=== PATIENT | male | born 1980 | race Caucasian/White ===

== ENCOUNTER 2016-10-25 15:43 | Emergency (ER) | payer MEDICAID, OTHER ==
[~2016-10-25] VITALS: Ht 180.3 cm; Wt 86.2 kg
[~2016-10-25 15:43] MED LIST: CITA10TA70 PO; CYCL10TA9 PO; HYDR-34 PO; NAPR-243 PO; ONDA4TAB8 PO; OXYC-272 PO; TRAM-42 PO; TRM50T PO
--- NOTE | 2016-10-25 16:35 | Diagnostic Imaging Report ---
Portable upright radiograph of the chest. INDICATION: Chest pain. FINDINGS: The lungs are clear. The heart size is normal. There is no effusion or pneumothorax. The mediastinum mayte appear unremarkable. IMPRESSION: Unremarkable exam. Dictated by: Dictated on workstation # [id number]
[2016-10-25 16:36] LABS: BASOPHILS % (AUTO) 0 % (0-10); EOSINOPHILS # (AUTO) 0.3 10^3/uL (0.0-0.3); EOSINOPHILS % (AUTO) 3 % (0-10); LYMPHOCYTES # (AUTO) 2.7 X 10^3 (1.0-4.0); LYMPHOCYTES % (AUTO) 27 % (12-44); MEAN CORPUSCULAR HEMOGLOBIN 33 PG (25-34); MEAN CORPUSCULAR HGB CONC 36 G/DL (32-36); MEAN CORPUSCULAR VOLUME 92 FL (80-99); MEAN PLATELET VOLUME 9.8 FL (7.4-10.4); MONOCYTES % (AUTO) 10 % (0-12); NEUTROPHILS # (AUTO) 5.8 X 10^3 (1.8-7.8); NEUTROPHILS % (AUTO) 60 % (42-75); PLATELET COUNT 290 10^3/uL (130-400); RED BLOOD COUNT 4.35 10^6/uL (4.35-5.85); RED CELL DISTRIBUTION WIDTH 12.8 % (10.0-14.5); WHITE BLOOD COUNT 9.8 10^3/uL (4.3-11.0)
[2016-10-25] MEDS ORDERED: SERT100T8 PO (16:41)
[2016-10-25] MEDS ORDERED: OXCA300T PO (16:41)
[2016-10-25] MEDS ORDERED: GEMF600T3 PO (16:41)
[2016-10-25] MEDS ORDERED: NS IV 1000 ML 1,000 ML IV ONE (16:43)
[2016-10-25] MEDS ORDERED: KETOROLAC 30 MG/ML VIAL IVP ONE (16:45)
[2016-10-25 16:48] LABS: INR 0.9 (0.8-1.4); PROTHROMBIN TIME PATIENT 12.3 SEC (12.2-14.7)
[2016-10-25 16:55] LABS: ALANINE AMINOTRANSFERASE 17 U/L (0-55); ALBUMIN 4.7 G/DL (3.2-4.5); ANION GAP 10 MMOL/L (5-14); ASPARTATE AMINO TRANSFERASE 13 U/L (5-34); BILIRUBIN,TOTAL 0.3 MG/DL (0.1-1.0); BLOOD UREA NITROGEN 15 MG/DL (7-18); BUN/CREATININE RATIO 17; CALCIUM 9.7 MG/DL (8.5-10.1); CARBON DIOXIDE 23 MMOL/L (21-32); CHLORIDE 108 MMOL/L (98-107); CREATININE SERUM 0.88 MG/DL (0.60-1.30); GFR ESTIMATED > 60; GLUCOSE 101 MG/DL (70-105); MAGNESIUM 2.2 MG/DL (1.8-2.4); POTASSIUM 3.8 MMOL/L (3.6-5.0); SODIUM 141 MMOL/L (135-145); TOTAL PROTEIN 7.2 G/DL (6.4-8.2)
[2016-10-25 17:02] LABS: MYOGLOBIN SERUM 36.8 NG/ML (10.0-92.0)
[2016-10-25 17:04] LABS: ALCOHOL < 10 MG/DL (<10); hs C REACTIVE PROTEIN 0.88 MG/DL (0.00-0.50)
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
[2016-10-25 18:12] LABS: THYROID STIMULATING HORMONE 2.67 UIU/ML (0.35-4.94)
[2016-10-25] MEDS ORDERED: PRD20T PO (18:31)
[2016-10-25 18:32] VITALS: BP 132/84
== END 2016-10-25 18:32 | disposition home or self-care (01) ==
LOC: EDUNIT# 15:43 → ER 15:45
DX: R07.89 Other chest pain (principal); R42 Dizziness and giddiness; I25.2 Old myocardial infarction; F17.210 Nicotine dependence, cigarettes, uncomplicated; Z85.47 Personal history of malignant neoplasm of testis; Z85.850 Personal history of malignant neoplasm of thyroid; Z90.79 Acquired absence of other genital organ(s); Z87.820 Personal history of traumatic brain injury; Z79.899 Other long term (current) drug therapy
CPT/HCPCS: 36415; 71010; 80053; 80306; 80320; 83735; 83874; 84439; 84443; 84484; 85025; 85379; 85610; 85730; 86141; 87804; 93005; 93041; 96374; 99285

== ENCOUNTER 2017-03-05 10:39 | Emergency (ER) | payer MEDICAID ==
[~2017-03-05] VITALS: Ht 177.8 cm; Wt 83.9 kg
[~2017-03-05 10:39] MED LIST changes: +GEMF600T3 PO; +OXCA300T PO; +PRD20T PO; +SERT100T8 PO
--- NOTE | 2017-03-05 11:22 | ED Back Pain ---
General Chief Complaint: Back Problems Stated Complaint: BACK PAIN Nursing Triage Note: WORSENED CHRONIC BACK PAIN, NO NEW INJURY. Nursing Sepsis Screen: No Definite Risk Source of Information: Patient, Family Exam Limitations: No Limitations History of Present Illness Time Seen by Provider: 11:22 Initial Comments 37 her old male patient presents to the emergency department with complaints of low back pain. Chronic back pain for approximately 13 years, worse today. Reports he bent over to let the dog out and when he stood up he had severe low back pain. Denies bowel or bladder incontinence. Location: Lumbar Spine, Paraspinous Muscles Timing/Duration: Other (chronic pain 13 years. Worse today.) Pain/Injury Location: Back Radiation: Other (radiates down the bilateral lower extremities.) Method of Injury: Unknown (denies recent injury.) Modifying Factors: Improves With Immobilization, Worse With Movement Allergies and Home Medications Allergies Coded Allergies: Penicillins (Verified Allergy, Unknown, 03/05/17) aspirin (Unverified Allergy, Unknown, 03/05/17) Home Medications Cyclobenzaprine HCl 10 Mg Tablet, 10 MG PO Q8H PRN for SPASMS, #14 Ref 0 Prescribed by: CONSUELO GARZA on 03/05/17 1224 Prednisone 20 Mg Tab, 40 MG PO DAILY, #10 Ref 0 Prescribed by: CONSUELO GARZA on 03/05/17 1224 Tramadol HCl 50 Mg Tablet, 50 MG PO Q4H PRN for PAIN-MILD TO MODERATE, #20 Ref 0 Prescribed by: CONSUELO GARZA on 03/05/17 1224 Constitutional: No chills, No fever, No malaise Respiratory: no symptoms reported Cardiovascular: no symptoms reported Gastrointestinal: No abdominal pain, No constipation, No diarrhea, No nausea, No vomiting Genitourinary: No decreased output, No dysuria, No frequency, No hematuria, No incontinence, No pain Musculoskeletal: see HPI, back pain, muscle pain, No neck pain Skin: no symptoms reported Psychiatric/Neurological: Numbness (increased numbness LLE), Pre-Existing Deficit (chronic numbness left lower extremity secondary to a previous surgery) , Denies Weakness All Other Systems Reviewed Negative Unless Noted: Yes (Negative excepted noted.) Past Aidfcgt-Wgmpph-Htculh Hx Patient Social History Alcohol Use: Denies Use Recreational Drug Use: No (states "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.) Smoking Status: Current Everyday Smoker Type Used: Cigarettes 2nd Hand Smoke Exposure: Yes Recent Foreign Travel: No Contact w/Someone Who Travel: No Recent Infectious Disease Expo: No Recent Hopitalizations: No Immunizations Up To Date Tetanus Booster (TDap): Unknown Seasonal Allergies Seasonal Allergies: No Surgeries HX Surgeries: Yes Surgeries: Orthopedic, Testicular Respiratory Hx Respiratory Disorders: No Cardiovascular Hx Cardiac Disorders: Yes Cardiac Disorders: Coronary Artery Disease, Heart Attack Neurological Hx Neurological Disorders: Yes (numbness LLE below the knee from a previous surgery.) Neurological Disorders: Traumatic Brain Injury Reproductive System Hx Reproductive Disorders: No Genitourinary Hx Genitourinary Disorders: No Gastrointestinal Hx Gastrointestinal Disorders: No Musculoskeletal Hx Musculoskeletal Disorders: Yes Musculoskeletal Disorders: Back Injury, Scoliosis, Chronic Back Pain Endocrine Hx Endocrine Disorders: No HEENT HX ENT Disorders: No Cancer Hx Cancer: Yes Cancer: Thyroid Psychosocial Hx Psychiatric Problems: Yes (memory deficits from TBI) Behavioral Health Disorders: Anxiety, PTSD, Depression Integumentary HX Skin/Integumentary Disorder: No Reviewed Nursing Assessment Reviewed/Agree w Nursing PMH: Yes Family Medical History Significant Family History: No Pertinent Family Hx Physical Exam Vital Signs Vital Sign - Last 12Hours 03/05/17 11:13 Temp 98.1 Pulse 77 Resp 18 B/P (MAP) 111/81 Pulse Ox 98 O2 Delivery Room Air Capillary Refill : Less Than 3 Seconds General Appearance: WD/WN, Moderate Distress (patient states "Don't fucking move me!"), Other (disheveled, wearing bunny slippers and has a cane (states he keeps the cane around the house just in case he needs it)) HEENT: PERRL/EOMI, Pharynx Normal Neck: Normal Inspection, Supple Cardiovascular: Regular Rate, Rhythm, No Edema, No Murmur, Normal Peripheral Pulses Respiratory: Lungs Clear, Normal Breath Sounds, No Respiratory Distress Peripheral Pulses: 2+ Dorsalis Pedis (R), 2+ Left Dors-Pedis (L) Gastrointestinal: Normal Bowel Sounds, No Organomegaly, Non Tender, Soft, No Distended Back: Normal Inspection (patient refuses ROM testing.), Muscle Spasm, Vertebral Tenderness Extremity: Normal Capillary Refill, Normal Inspection, No Calf Tenderness, No Pedal Edema, Other (rt thigh soft tissue tenderness. rt buttock soft tissue tenderness. refuses ROM testing of the BLE.) Neurologic/Psychiatric: Alert, Oriented x3, Normal Mood/Affect, No Motor Weakness, Sensory Deficit (LLE below the knee (patient states this is "normal" for him)) Skin: Normal Color, Warm/Dry Progress/Results/Core Measures Results/Orders My Orders Orders - CONSUELO GARZA Ct Lumbar Spine Wo (03/05/17 11:33) Ketorolac Injection (Toradol Injection) (03/05/17 11:33) Orphenadrine Injection (Norflex Injectio (03/05/17 11:33) Oxycodone/Apap 5/325mg Tablet (Percocet (03/05/17 11:33) Vital Signs/I&O Vital Sign - Last 12Hours 03/05/17 03/05/17 11:13 12:28 Temp 98.1 98.1 Pulse 77 67 Resp 18 16 B/P (MAP) 111/81 Pulse Ox 98 96 O2 Delivery Room Air Blood Pressure Mean: 91 Diagnostic Imaging Diagonstic Imaging: CT Plain Films/CT/US/NM/MRI: other (lumbar spine) Comments FINDINGS: The lumbar spine is normal in alignment. Specifically, no spondylolisthesis. No fracture or spondylolysis. There are small disc bulges at L3-4, L4-L5 and L5-S1, however, there is no significant spinal stenosis. No foci of neural foraminal narrowing within the lumbar spine. Visualized aspect of the retroperitoneum are normal. SI joints are normal. No sacral fracture where visualized. IMPRESSION: 1. No acute fracture or traumatic malalignment of the lumbar spine. 2. Small disc bulges from L3-L4 through L5-S1 without significant spinal stenosis. Dictated by: Dictated on workstation # [id number] Reviewed: Reviewed by Me (radiology report reviewed by me) Departure Communication Progress Notes diagnostic findings discussed with the patient. patient reports feeling better with medications given. proceed with psychiatric hospital to home. patient instructed to f/u with his PCP for recheck this week. Impression Impression: Primary Impression: Acute exacerbation of chronic low back pain Disposition: HOME, SELF-CARE Condition: Improved Departure-Patient Inst. Decision time for Depature: 12:23 Referrals: [facility] (PCP/Family) Primary Care Physician Patient Instructions: MANAGING YOUR CHRONIC PAIN Add. Discharge Instructions: All discharge instructions reviewed with patient and/or family. Voiced understanding. Medications as instructed. Ibuprofen 800 mg by mouth every 8 hours as needed for pain. Tylenol extra strength [id number] as directed for pain. Ice packs or heating pads as needed for pain. No lifting, pushing, pulling, twisting, bending, climbing 7 days. Follow-up with family practitioner this week for recheck, call for appointment time. Return to the emergency department for worsened pain, bowel incontinence, bladder incontinence , fever, numbness of the genitals, or any other concerns. Scripts Cyclobenzaprine HCl (Cyclobenzaprine HCl) 10 Mg Tablet 10 MG PO Q8H Y for SPASMS, #14 TAB 0 Refills Prov: CONSUELO GARZA 03/05/17 Prednisone (Prednisone) 20 Mg Tab 40 MG PO DAILY, #10 TAB 0 Refills Prov: CONSUELO GARZA 03/05/17 Tramadol HCl (Tramadol HCl) 50 Mg Tablet 50 MG PO Q4H Y for PAIN-MILD TO MODERATE, #20 TAB 0 Refills Prov: CONSUELO GARZA 03/05/17 CONSUELO GARZA March 05, 2017 11:22
[2017-03-05] MEDS ORDERED: ORPHENADRINE 60 MG/2 ML (NORFLEX) AMP IM STA (11:33)
[2017-03-05] MEDS ORDERED: oxyCODONE/APAP 5/325MG (PERCOCET 5) TABLET PO STA (11:33)
[2017-03-05] MEDS ORDERED: KETOROLAC 60 MG/2 ML VIAL IM STA (11:33)
--- NOTE | 2017-03-05 12:11 | Diagnostic Imaging Report ---
PROCEDURE: CT lumbar spine without contrast. TECHNIQUE: Multiple contiguous axial images were obtained through the lumbar spine without the use of intravenous contrast. Sagittal and coronal reformations were then performed. INDICATION: Chronic back pain. COMPARISON: None available. FINDINGS: The lumbar spine is normal in alignment. Specifically, no spondylolisthesis. No fracture or spondylolysis. There are small disc bulges at L3-4, L4-L5 and L5-S1, however, there is no significant spinal stenosis. No foci of neural foraminal narrowing within the lumbar spine. Visualized aspect of the retroperitoneum are normal. SI joints are normal. No sacral fracture where visualized. IMPRESSION: 1. No acute fracture or traumatic malalignment of the lumbar spine. 2. Small disc bulges from L3-L4 through L5-S1 without significant spinal stenosis. Dictated by: Dictated on workstation # [id number]
[2017-03-05] MEDS ORDERED: CYCL10TA9 PO (12:24)
[2017-03-05] MEDS ORDERED: TRAM50TA2 PO (12:24)
[2017-03-05] MEDS ORDERED: PRD20T PO (12:24)
[2017-03-05 12:28] VITALS: BP 129/69
== END 2017-03-05 12:28 | disposition home or self-care (01) ==
LOC: EDUNIT# 10:39 → ER 10:40
DX: M51.26 Other intervertebral disc displacement, lumbar region (principal); G89.29 Other chronic pain; I25.10 Atherosclerotic heart disease of native coronary artery without angina pectoris; F17.210 Nicotine dependence, cigarettes, uncomplicated
CPT/HCPCS: 72131; 99281

== ENCOUNTER 2018-01-08 20:49 | Emergency (ER) | payer MEDICAID ==
[~2018-01-08] VITALS: Ht 180.3 cm; Wt 83.9 kg
[~2018-01-08 20:49] MED LIST changes: +TRAM50TA2 PO
--- NOTE | 2018-01-08 21:14 | ED Upper Extremity ---
General Chief Complaint: Upper Extremity Stated Complaint: L HAND MIDDLE FINGER INJ Source: patient Exam Limitations: no limitations History of Present Illness Date Seen by Provider: Jan 08, 2018 Time Seen by Provider: 21:12 Initial Comments To ER with a left middle finger crush injury after a piece of concrete fell on it while working on the [employer] about one hour prior to arrival. Onset: just prior to arrival Severity: moderate Pain/Injury Location: left 3rd finger Method of Injury: direct blow Modifying Factors: Worse With Movement Allergies and Home Medications Allergies Coded Allergies: Penicillins (Verified Allergy, Unknown, 03/05/17) aspirin (Unverified Allergy, Unknown, 03/05/17) Home Medications Cyclobenzaprine HCl 10 Mg Tablet, 10 MG PO Q8H PRN for SPASMS Prescribed by: CONSUELO GARZA on 03/05/17 1224 Prednisone 20 Mg Tab, 40 MG PO DAILY Prescribed by: CONSUELO GARZA on 03/05/17 1224 Tramadol HCl 50 Mg Tablet, 50 MG PO Q4H PRN for PAIN-MILD TO MODERATE Prescribed by: CONSUELO GARZA on 03/05/17 1224 Patient Home Medication List Home Medication List Reviewed: Yes Constitutional: see HPI EENTM: see HPI Respiratory: no symptoms reported Cardiovascular: no symptoms reported Genitourinary: no symptoms reported Musculoskeletal: see HPI Skin: no symptoms reported Psychiatric/Neurological: No Symptoms Reported Past Lscmxko-Mzutcy-Dcgakc Hx Patient Social History Type Used: Cigarettes 2nd Hand Smoke Exposure: Yes Recent Foreign Travel: No Contact w/Someone Who Travel: No Recent Hopitalizations: No Immunizations Up To Date Tetanus Booster (TDap): Unknown Seasonal Allergies Seasonal Allergies: No Surgeries History of Surgeries: Yes (SHOULDER, HEAD, HIP, R KNEE, L LEG) Surgeries: Orthopedic, Testicular Respiratory History of Respiratory Disorde: No Cardiovascular History of Cardiac Disorders: Yes Cardiac Disorders: Coronary Artery Disease, Heart Attack Neurological History of Neurological Disord: Yes Neurological Disorders: Traumatic Brain Injury Reproductive System Hx Reproductive Disorders: No Gastrointestinal History of Gastrointestinal Di: No Musculoskeletal History of Musculoskeletal Dis: Yes (SCIATICA) Musculoskeletal Disorders: Back Injury, Scoliosis, Chronic Back Pain Endocrine History of Endocrine Disorders: No Cancer History of Cancer: Yes Cancer: Thyroid Psychosocial History of Psychiatric Problem: Yes (memory deficits from TBI) Behavioral Health Disorders: Anxiety, PTSD, Depression Integumentary History of Skin or Integumenta: No Blood Transfusions History of Blood Disorders: No Family Medical History Significant Family History: No Pertinent Family Hx Physical Exam Vital Signs Capillary Refill : General Appearance: WD/WN, no apparent distress HEENT: PERRL/EOMI, normal ENT inspection Neck: non-tender, full range of motion Respiratory: no respiratory distress, no accessory muscle use Gastrointestinal: normal bowel sounds, non tender Shoulder: normal inspection, non-tender Elbow/Forearm: normal inspection, non-tender, Left Wrist: Yes normal inspection, Yes non-tender, Yes no evidence of injury Hand: Left, limited ROM, swelling (is no laceration. There is a very small about 2 mm subungual hematoma) Neurologic/Psychiatric: alert, normal mood/affect, oriented x 3 Skin: normal color, warm/dry Progress/Results/Core Measures Results/Orders My Orders Orders - ZINA AYON APRN Hand, Left, 3 Views (01/08/18 21:00) Rx-Hydrocodone/Apap 5-325 Mg (Rx-Vicodin (01/08/18 21:30) Departure Impression Impression: Primary Impression: Finger fracture Disposition: 01 HOME, SELF-CARE Condition: Stable Departure-Patient Inst. Decision time for Depature: 21:24 Referrals: [facility] (PCP/Family) Primary Care Physician Patient Instructions: Finger Fracture (DC) Add. Discharge Instructions: . Wear the splint for the next 2 weeks 2. Return to ER for any concerns 3. Take pain medication as directed. ZINA AYON APRN Jan 08, 2018 21:14
[2018-01-08] MEDS ORDERED: RX-HYDROCODONE/APAP 5/325 MG #4 TAB PK PO PRN (21:30)
[2018-01-08 21:39] VITALS: BP 132/87
--- NOTE | 2018-01-08 22:28 | Diagnostic Imaging Report ---
EXAM: HAND, LEFT, 3 VIEWS INDICATION: Left third finger crush injury. COMPARISON: None. FINDINGS: Mildly displaced fracture of the left third distal phalangeal tuft. No radiopaque foreign bodies. No fractures. IMPRESSION: Mildly displaced fracture of the left third distal phalangeal tuft. Dictated by: Dictated on workstation # [id number]
== END 2018-01-08 21:39 | disposition home or self-care (01) ==
LOC: EDUNIT# 20:49 → ER 20:51
DX: S62.633A Displaced fracture of distal phalanx of left middle finger, initial encounter for closed fracture (principal); I25.10 Atherosclerotic heart disease of native coronary artery without angina pectoris; I25.2 Old myocardial infarction; F41.9 Anxiety disorder, unspecified; F32.9 Major depressive disorder, single episode, unspecified; F43.10 Post-traumatic stress disorder, unspecified; Z85.850 Personal history of malignant neoplasm of thyroid; Z87.820 Personal history of traumatic brain injury; Z88.6 Allergy status to analgesic agent; Z88.0 Allergy status to penicillin; Z79.52 Long term (current) use of systemic steroids; Z77.22 Contact with and (suspected) exposure to environmental tobacco smoke (acute) (chronic); W20.8XXA Other cause of strike by thrown, projected or falling object, initial encounter; Y92.89 Other specified places as the place of occurrence of the external cause
CPT/HCPCS: 29130; 73130

== ENCOUNTER 2018-09-04 18:56 | Emergency (ER) | payer MEDICAID ==
[~2018-09-04] VITALS: Ht 180.3 cm; Wt 88.5 kg
[~2018-09-04 18:56] MED LIST changes: -GEMF600T3 PO; +GEMF600T4 PO; -OXCA300T PO; +OXCA300T18 PO
--- OUTSIDE RECORDS SUMMARY | 2018-09-04 19:01 | XMS REPORT ---
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.01 Active 23816028 Problem 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 Active Problem History of thyroid cancer Z85.850 Active 395442780 Problem Internal hemorrhoid, bleeding K64.8 Active 07194511 Problem Other chronic pain G89.29 Active 95186448 Problem Low back pain M54.5 Active 893397152 Problem Generalized abdominal pain R10.84 Active 140736435 Problem PTSD (post-traumatic stress disorder) F43.10 Active 55036661 Problem Social phobia F40.10 Active 58981472 Problem Anxiety disorder, unspecified F41.9 Active 855478291 Problem Pain in right shoulder M25.511 Active 87615016 Problem Bipolar 1 disorder F31.9 Active 902792504 Problem Encounter to establish care Z76.89 Active 862098008 ALLERGIES No Known Allergies SOCIAL HISTORY No smoking Hx information available PLAN OF CARE VITAL SIGNS MEDICATIONS No Known Medications RESULTS Name Result Date Reference Range TESTOSTERONE, FREE AND TOTAL 2016-09-27 Testosterone, Serum [phone] Comment: Free Testosterone(Direct) 10.8 8.7-25.1 A1C 2016-09-27 Hemoglobin A1c 5.6 4.8-5.6 CBC 2016-09-27 WBC 9.1 3.4-10.8 RBC 4.43 4.14-5.80 Hemoglobin 14.3 12.6-17.7 Hematocrit 41.4 37.5-51.0 MCV 94 79-97 MCH 32.3 26.6-33.0 MCHC 34.5 31.5-35.7 RDW 13.4 12.3-15.4 Platelets 312 150-379 Neutrophils 61 Lymphs 28 Monocytes 7 Eos 4 Basos 0 Neutrophils (Absolute) 5.5 1.4-7.0 Lymphs (Absolute) 2.6 0.7-3.1 Monocytes(Absolute) 0.6 0.1-0.9 Eos (Absolute) 0.3 0.0-0.4 Baso (Absolute) 0.0 0.0-0.2 Immature Granulocytes 0 Immature Grans (Abs) 0.0 0.0-0.1 LIPID PANEL 2016-09-27 Cholesterol, Total 186 100-199 Triglycerides 398 0-149 HDL Cholesterol 23 >39 VLDL Cholesterol Rajeev 80 5-40 LDL Cholesterol Calc 83 0-99 CMP 2016-09-27 Glucose, Serum 109 65-99 BUN 8 6-20 Creatinine, Serum 0.85 0.76-1.27 eGFR If NonAfricn Am 113 >59 eGFR If Africn Am 131 >59 BUN/Creatinine Ratio 9 8-19 Sodium, Serum 142 134-144 Potassium, Serum 4.2 3.5-5.2 Chloride, Serum 101 96-106 Carbon Dioxide, Total 26 18-29 Calcium, Serum 9.4 8.7-10.2 Protein, Total, Serum 6.9 6.0-8.5 Albumin, Serum 4.8 3.5-5.5 Globulin, Total 2.1 1.5-4.5 A/G Ratio 2.3 1.1-2.5 Bilirubin, Total 0.4 0.0-1.2 Alkaline Phosphatase, S 88 39-117 AST (SGOT) 14 0-40 ALT (SGPT) 17 0-44 PROCEDURES Procedure Date Ordered Related Diagnosis Body Site [facility] Sep 27, 2016 GLYCATED HEMOGLOBIN TEST Sep 27, 2016 VENIPUNCT, ROUTINE* Sep 27, 2016 IMMUNIZATIONS No Known Immunizations
--- OUTSIDE RECORDS SUMMARY | 2018-09-04 19:01 | XMS REPORT ---
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 Active 76703842 Problem 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 Active Problem Generalized abdominal pain R10.84 Active 289277227 Problem History of thyroid cancer Z85.850 Active 957322872 Problem Encounter to establish care Z76.89 Active 920666351 Problem PTSD (post-traumatic stress disorder) F43.10 Active 79668296 Problem Internal hemorrhoid, bleeding K64.8 Active 55613059 Problem Frequent urination R35.0 Active 654788594 Problem Social phobia F40.10 Active 47600863 Problem Anxiety disorder, unspecified F41.9 Active 060891422 Problem Low back pain M54.5 Active 527510593 Problem Bipolar 1 disorder F31.9 Active 853997870 Problem Pain in right shoulder M25.511 Active 31774313 ALLERGIES No Known Allergies SOCIAL HISTORY No smoking Hx information available PLAN OF CARE VITAL SIGNS MEDICATIONS No Known Medications RESULTS No Results PROCEDURES No Known procedures IMMUNIZATIONS No Known Immunizations
--- OUTSIDE RECORDS SUMMARY | 2018-09-04 19:01 | XMS REPORT ---
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.01 Active 32498796 Problem 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 Active Problem Generalized abdominal pain R10.84 Active 005292015 Problem History of thyroid cancer Z85.850 Active 114110897 Problem Encounter to establish care Z76.89 Active 637600741 Problem PTSD (post-traumatic stress disorder) F43.10 Active 63617850 Problem Internal hemorrhoid, bleeding K64.8 Active 58769509 Problem Frequent urination R35.0 Active 866871073 Problem Social phobia F40.10 Active 13013468 Problem Anxiety disorder, unspecified F41.9 Active 947715403 Problem Low back pain M54.5 Active 013728839 Problem Bipolar 1 disorder F31.9 Active 077820211 Problem Pain in right shoulder M25.511 Active 41790538 ALLERGIES Substance Reaction Event Type Date Status Klonopin Hallucinations Drug Allergy Sep, Active Dilantin Toxic levels at low dosing Drug Allergy Sep, Active Aspirin Tightness in chest Drug Allergy Sep, Active Penicillins Dyspnea Non Drug Allergy Sep, Active SOCIAL HISTORY No smoking Hx information available PLAN OF CARE VITAL SIGNS MEDICATIONS No Known Medications RESULTS No Results PROCEDURES Procedure Date Ordered Related Diagnosis Body Site Psych diagnostic evaluation, new patient Sep 15, 2016 IMMUNIZATIONS No Known Immunizations
--- OUTSIDE RECORDS SUMMARY | 2018-09-04 19:01 | XMS REPORT ---
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 Active 74106895 Problem 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 Active Problem History of thyroid cancer Z85.850 Active 951893570 Problem Internal hemorrhoid, bleeding K64.8 Active 81147242 Problem Other chronic pain G89.29 Active 95114035 Problem Low back pain M54.5 Active 026897369 Problem Generalized abdominal pain R10.84 Active 796558818 Problem PTSD (post-traumatic stress disorder) F43.10 Active 31731663 Problem Social phobia F40.10 Active 98944101 Problem Anxiety disorder, unspecified F41.9 Active 525382087 Problem Pain in right shoulder M25.511 Active 65146200 Problem Bipolar 1 disorder F31.9 Active 683160728 Problem Encounter to establish care Z76.89 Active 327937612 ALLERGIES Substance Reaction Event Type Date Status Klonopin Hallucinations Drug Allergy Sep, Active Dilantin Toxic levels at low dosing Drug Allergy Sep, Active Aspirin Tightness in chest Drug Allergy Sep, Active Penicillins Dyspnea Non Drug Allergy Sep, Active SOCIAL HISTORY No smoking Hx information available PLAN OF CARE Activity Details Follow Up 3 Months Reason: VITAL SIGNS Height 72 in 2016-09-26 Weight 191.6 lbs 2016-09-26 Temperature 98.2 degrees Fahrenheit 2016-09-26 Heart Rate 72 bpm 2016-09-26 Respiratory Rate 18 2016-09-26 BMI 25.98 kg/m2 2016-09-26 Blood pressure systolic 122 mmHg 2016-09-26 Blood pressure diastolic 76 mmHg 2016-09-26 MEDICATIONS Medication Instructions Dosage Frequency Start Date End Date Duration Status Trileptal 300 MG Orally 2 times a day 1 tablet 12h Active Zoloft 100 MG Orally Once a day 1 tablet 24h Active RESULTS Name Result Date Reference Range Xray : Shoulder, Right 2 view (IN HOUSE) 2016-09-26 PROCEDURES Procedure Date Ordered Related Diagnosis Body Site Office Visit, Est Pt., Level 4 Sep 26, 2016 X-RAY EXAM OF SHOULDER Sep 26, 2016 IMMUNIZATIONS No Known Immunizations
--- OUTSIDE RECORDS SUMMARY | 2018-09-04 19:01 | XMS REPORT ---
Author Author INDIRA GILLILAND Organization [facility] Address [address] [place] [address] Care Team Providers Care Frit Mixer Name Role Phone INDIRA GILLILAND Unavailable PROBLEMS Type Condition ICD9-CM Code MOW70-SS Code Onset Dates Condition Status SNOMED Code Problem Back pain of lumbar region with sciatica M54.40 Active 720041224 Problem Internal hemorrhoid, bleeding K64.8 Active 67485400 Problem Bipolar 1 disorder F31.9 Active 338017842 Problem Anxiety disorder, unspecified F41.9 Active 860580640 Problem PTSD (post-traumatic stress disorder) F43.10 Active 12987000 Problem Social phobia F40.10 Active 03900600 ALLERGIES Substance Reaction Event Type Date Status Klonopin Hallucinations Drug Allergy Mar, Active Dilantin Toxic levels at low dosing Drug Allergy Mar, Active Aspirin Tightness in chest Drug Allergy Mar, Active Penicillins Dyspnea Non Drug Allergy Mar, Active ENCOUNTERS Encounter Location Date Diagnosis [facility] [id number] [place] [phone] Mar, Lymph node enlargement R59.9 and Abscess of left earlobe H60.02 [facility] [id number] [place] [phone] Nov, Back pain of lumbar region with sciatica M54.40 [facility] [id number] [place] [address] Apr, Tinea corporis B35.4 and Cellulitis of left lower extremity L03.116 [facility] [id number] [place] [address] Jan, Internal hemorrhoid, bleeding K64.8 ; History of thyroid cancer Z85.850 and Generalized abdominal pain R10.84 [place] [id number] [address] Oct, PTSD (post-traumatic stress disorder) F43.10 [place] [address] [address] Oct, [place] [address] [address] Sep, Encounter to establish care Z76.89 [place] [address] [place] [address] Sep, [place] [id number] [place] [address] Sep, 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 ; PTSD ( post-traumatic stress disorder) F43.10 ; Frequent urination R35.0 and Encounter to establish care Z76.89 [place] [address] [place] [address] Sep, PTSD (post-traumatic stress disorder) F43.10 ; 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 ; Other chronic pain G89.29 ; Low back pain M54.5 ; Frequent urination R35.0 ; Encounter to establish care Z76.89 and Pain in right shoulder M25.511 [place] [address], [place] [address] Sep, PTSD (post-traumatic stress disorder) F43.10 ; Anxiety disorder, unspecified F41.9 ; Social phobia F40.10 and Bipolar 1 disorder F31.9 [place] [id number] [address] Jan, [place] [address] [address] Jan, [place] [address] [id number] [id number] Nov, [place] [address] [place] [address] Nov, [facility] [address] [facility] [id number] [address] Mar, [facility] [address] [facility] [id number] [id number] Mar, [facility] [address] [facility] [id number], [place] [address] February, [facility] [address], [place] [address] February, [facility] [address] [facility] [id number], [place] [address] February, [facility] [id number], [place] [address] February, [facility] [id number] [address] Jan, [facility] [id number], [place] [address] Jan, IMMUNIZATIONS No Known Immunizations SOCIAL HISTORY Never Assessed REASON FOR VISIT ear pain Pt c/o L ear pain, states gets an infection on outside of ear lobe and this time it is below ear in neck Lexie QUICK PLAN OF CARE Activity Details Follow Up w/ Dermatology Reason:reoccuring earlobe abscess VITAL SIGNS Height 72 in 2018-03-14 Weight 187.4 lbs 2018-03-14 Temperature 98.8 degrees Fahrenheit 2018-03-14 Heart Rate 84 bpm 2018-03-14 Respiratory Rate 20 2018-03-14 BMI 25.41 kg/m2 2018-03-14 Blood pressure systolic 122 mmHg 2018-03-14 Blood pressure diastolic 78 mmHg 2018-03-14 MEDICATIONS Medication Instructions Dosage Frequency Start Date End Date Duration Status Bactrim DS 800-160 MG Orally Twice a day 1 tablet 12h Mar,Mar 10 day(s) Active RESULTS No Results PROCEDURES No Known procedures INSTRUCTIONS MEDICATIONS ADMINISTERED No Known Medications MEDICAL (GENERAL) HISTORY Type Description Date Medical History PTSD Medical History depression Medical History bipolar disorder Medical History testicular cancer-2004 Medical History thyroid cancer-2009 Medical History Dysuria Medical History Dysuria Medical History Malignant neoplasm of undescended right testis Medical History Malignant neoplasm of descended left testis Medical History History of thyroid cancer Surgical History plate in head 2002 Surgical History right shoulder 2002 Surgical History lower back-pens and screws 2002 Surgical History both knee 2002 Surgical History left ankle 2002 Surgical History oral surgery/jaw 2002 Hospitalization History Coma x 6 months 2002
--- OUTSIDE RECORDS SUMMARY | 2018-09-04 19:02 | XMS REPORT ---
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 Active 86333615 Problem 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 Active Problem History of thyroid cancer Z85.850 Active 832282243 Problem Internal hemorrhoid, bleeding K64.8 Active 24603440 Problem Other chronic pain G89.29 Active 98087541 Problem Low back pain M54.5 Active 333783980 Problem Generalized abdominal pain R10.84 Active 130525643 Problem PTSD (post-traumatic stress disorder) F43.10 Active 95504378 Problem Social phobia F40.10 Active 36579499 Problem Anxiety disorder, unspecified F41.9 Active 250980589 Problem Pain in right shoulder M25.511 Active 00642409 Problem Bipolar 1 disorder F31.9 Active 725452283 Problem Encounter to establish care Z76.89 Active 859510195 ALLERGIES No Known Allergies SOCIAL HISTORY No smoking Hx information available PLAN OF CARE VITAL SIGNS MEDICATIONS No Known Medications RESULTS No Results PROCEDURES No Known procedures IMMUNIZATIONS No Known Immunizations
--- OUTSIDE RECORDS SUMMARY | 2018-09-04 19:02 | XMS REPORT ---
Author Author STEVAN MART Organization [facility] Address [address] [place] [address] Care Team Providers Care Agriculture Manager Name Role Phone STEVAN MART Unavailable PROBLEMS Type Condition ICD9-CM Code DEX39-KT Code Onset Dates Condition Status SNOMED Code Problem Pain in right shoulder M25.511 Active 48705203 Problem 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 Active Problem Other chronic pain G89.29 Active 54913301 Problem Back pain of lumbar region with sciatica M54.40 Active 692375104 Problem Internal hemorrhoid, bleeding K64.8 Active 08045641 Problem PTSD (post-traumatic stress disorder) F43.10 Active 00066252 Problem 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.01 Active 96427300 Problem History of thyroid cancer Z85.850 Active 134390479 Problem Generalized abdominal pain R10.84 Active 307679971 Problem Anxiety disorder, unspecified F41.9 Active 129276132 Problem Frequent urination R35.0 Active 791171542 Problem Bipolar 1 disorder F31.9 Active 439505143 Problem Encounter to establish care Z76.89 Active 987204957 Problem Social phobia F40.10 Active 08904865 Problem Low back pain M54.5 Active 419165181 ALLERGIES Substance Reaction Event Type Date Status Klonopin Hallucinations Drug Allergy Apr, Active Dilantin Toxic levels at low dosing Drug Allergy Apr, Active Aspirin Tightness in chest Drug Allergy Apr, Active Penicillins Dyspnea Non Drug Allergy Apr, Active ENCOUNTERS Encounter Location Date Diagnosis [facility] [address] [facility] [id number] [address] Nov, Back pain of lumbar region with sciatica M54.40 [facility] [address] [facility] [id number] [address] Apr, Tinea corporis B35.4 and Cellulitis of left lower extremity L03.116 [place] [id number] [place] [address] Jan, 2017 Internal hemorrhoid, bleeding K64.8 ; History of thyroid cancer Z85.850 and Generalized abdominal pain R10.84 [place] [address] [place] [address] 18 Oct, 2016 PTSD (post-traumatic stress disorder) F43.10 [place] [id number] [place] [address] Oct, [place] [id number] [place] [address] Sep, Encounter to establish care Z76.89 [place] [id number] [place] [address] Sep, [place] [address] [address] Sep, 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 ; PTSD ( post-traumatic stress disorder) F43.10 ; Frequent urination R35.0 and Encounter to establish care Z76.89 [place] [id number] [place] [address] Sep, PTSD (post-traumatic stress disorder) F43.10 ; 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 ; Other chronic pain G89.29 ; Low back pain M54.5 ; Frequent urination R35.0 ; Encounter to establish care Z76.89 and Pain in right shoulder M25.511 [place] [id number] [place] [address] Sep, PTSD (post-traumatic stress disorder) F43.10 ; Anxiety disorder, unspecified F41.9 ; Social phobia F40.10 and Bipolar 1 disorder F31.9 [place] [address] [place] [address] Jan, [place] [address] [id number] [address] Jan, [facility] [address] [id number] [id number] Nov, [facility] [id number] [address] Nov, [facility] [id number] [address] Mar, [facility] [address] [id number] [id number] Mar, [facility] [address] [address] February, [facility] [address] [address] February, [facility] [address] [address] February, [facility] [address] [address] February, [facility] [id number] [address] Jan, [facility] [id number] [address] Jan, IMMUNIZATIONS No Known Immunizations SOCIAL HISTORY Never Assessed REASON FOR VISIT Rash- states it is on buttock, groin and down the legs- Crystal Mendoza RN PLAN OF CARE Activity Details Follow Up prn Reason: VITAL SIGNS Height 72 in 2017-04-24 Weight 183 lbs 2017-04-24 Temperature 98.5 degrees Fahrenheit 2017-04-24 Heart Rate 78 bpm 2017-04-24 Respiratory Rate 16 2017-04-24 BMI 24.82 kg/m2 2017-04-24 Blood pressure systolic 162 mmHg 2017-04-24 Blood pressure diastolic 78 mmHg 2017-04-24 MEDICATIONS Medication Instructions Dosage Frequency Start Date End Date Duration Status Lamisil 250 MG Orally Once a day 1 tablet 24h Apr, Apr, 10 day(s) Active Bactrim DS 800-160 MG Orally Twice a day 1 tablet 12h 17 Apr, 2017Apr 10 day(s) Active RESULTS No Results PROCEDURES No Known procedures INSTRUCTIONS MEDICATIONS ADMINISTERED No Known Medications MEDICAL (GENERAL) HISTORY Type Description Date Medical History PTSD Medical History depression Medical History bipolar disorder Medical History testicular cancer-2004 Medical History thyroid cancer-2009 Medical History Dysuria Medical History Dysuria Surgical History plate in head 2002 Surgical History right shoulder 2002 Surgical History lower back-pens and screws 2002 Surgical History both knee 2002 Surgical History left ankle 2002 Surgical History oral surgery/jaw 2002 Hospitalization History Coma x 6 months 2002
--- OUTSIDE RECORDS SUMMARY | 2018-09-04 19:02 | XMS REPORT ---
Author Author CHERI GUIDRY Organization [facility] Address [address] [place] [address] Care Team Providers Care Hotbed Lever Operator Name Role Phone WALTER GUIDRYE Unavailable PROBLEMS Type Condition ICD9-CM Code IJM23-KU Code Onset Dates Condition Status SNOMED Code Problem Frequent urination R35.0 Active 722546313 Problem 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.01 Active 60938909 Problem 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 Active Problem History of thyroid cancer Z85.850 Active 656596683 Problem Internal hemorrhoid, bleeding K64.8 Active 68333715 Problem Other chronic pain G89.29 Active 47503798 Problem Low back pain M54.5 Active 469682837 Problem Generalized abdominal pain R10.84 Active 271996101 Problem PTSD (post-traumatic stress disorder) F43.10 Active 61142911 Problem Social phobia F40.10 Active 16341260 Problem Anxiety disorder, unspecified F41.9 Active 218519615 Problem Pain in right shoulder M25.511 Active 43517618 Problem Bipolar 1 disorder F31.9 Active 400412483 Problem Encounter to establish care Z76.89 Active 157608284 ALLERGIES No Known Allergies SOCIAL HISTORY No smoking Hx information available PLAN OF CARE VITAL SIGNS MEDICATIONS Medication Instructions Dosage Frequency Start Date End Date Duration Status Lopid 600 MG Orally Twice a day 1 tablet 12h Sep, 30 day(s) Active RESULTS No Results PROCEDURES No Known procedures IMMUNIZATIONS No Known Immunizations
--- OUTSIDE RECORDS SUMMARY | 2018-09-04 19:02 | XMS REPORT ---
Author Author CHERI GUIDRY Organization [facility] Address [address] [place] [address] Care Team Providers Care Director Of Pupil Personnel Program Name Role Phone MARTIN GUIDRYNETTE Unavailable PROBLEMS Type Condition ICD9-CM Code SXS32-DZ Code Onset Dates Condition Status SNOMED Code Problem Other chronic pain G89.29 Active 29642415 Problem 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.01 Active 03171888 Problem 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 Active Problem Generalized abdominal pain R10.84 Active 480723451 Problem History of thyroid cancer Z85.850 Active 762659919 Problem Encounter to establish care Z76.89 Active 906949031 Problem PTSD (post-traumatic stress disorder) F43.10 Active 42026376 Problem Internal hemorrhoid, bleeding K64.8 Active 57229698 Problem Frequent urination R35.0 Active 785477054 Problem Social phobia F40.10 Active 71033468 Problem Anxiety disorder, unspecified F41.9 Active 102258403 Problem Low back pain M54.5 Active 638785162 Problem Bipolar 1 disorder F31.9 Active 879279167 Problem Pain in right shoulder M25.511 Active 13526969 ALLERGIES No Known Allergies SOCIAL HISTORY No smoking Hx information available PLAN OF CARE VITAL SIGNS MEDICATIONS Medication Instructions Dosage Frequency Start Date End Date Duration Status Zoloft 100 MG Orally Once a day 1 tablet 24h 30 days Active Trileptal 300 MG Orally 2 times a day 1 tablet 12h 30 days Active RESULTS No Results PROCEDURES No Known procedures IMMUNIZATIONS No Known Immunizations
--- OUTSIDE RECORDS SUMMARY | 2018-09-04 19:03 | XMS REPORT | Continuity of Care Document ---
Author Author [facility] Address Unknown Phone Unavailable Allergies Active Description Code Type Severity Reaction Onset Reported/Identified Relationship to Patient Clinical Status Yes aspirin Drug Allergy N/A N/A 03/24/2014 Yes Dilantin Drug Allergy N/A N/A 03/24/2014 Yes Klonopin Drug Allergy N/A N/A 03/24/2014 Yes Penicillins Drug Allergy N/A N/A 03/24/2014 Yes aspirin [id number] Drug Allergy Unknown N/A 03/05/2017 Yes Penicillins [id number] Drug Allergy Unknown N/A 03/05/2017 Medications There is no data. Problems Date Dx Coded Attending Type Code Diagnosis Diagnosed By 02/05/2013 788.1 DYSURIA 02/05/2013 788.7 URETHRAL DISCHARGE 02/05/2013 788.1 DYSURIA 02/05/2013 788.7 URETHRAL DISCHARGE 02/05/2013 VICTORIA KATZ APRN 788.1 DYSURIA 02/05/2013 VICTORIA KATZ APRN 788.7 URETHRAL DISCHARGE 02/06/2013 NODX NO DIAGNOSIS 02/06/2013 VICTORIA KATZ APRN NODX NO DIAGNOSIS 03/24/2014 VICTORIA KATZ APRN 381.01 ACUTE SEROUS OTITIS MEDIA 03/24/2014 VICTORIA KATZ APRN 381.81 DYSFUNCTION OF EUSTACHIAN TUBE 04/18/2016 FRANCISCO WIGGINS DO Ot K62.5 HEMORRHAGE OF ANUS AND RECTUM 04/18/2016 FRANCISCO WIGGINS DO Ot R10.31 RIGHT LOWER QUADRANT PAIN 04/19/2016 FRANCISCO WIGGINS DO Ot K62.5 HEMORRHAGE OF ANUS AND RECTUM 04/19/2016 FRANCISCO WIGGINS DO Ot R10.31 RIGHT LOWER QUADRANT PAIN 08/22/2016 ROSIE NUNEZ, CASIE Kulkarni Ot K62.5 HEMORRHAGE OF ANUS AND RECTUM 08/22/2016 ROSIE NUNEZ, CASIE Kulkarni Ot Z01.818 ENCOUNTER FOR OTHER PREPROCEDURAL EXAMIN 10/25/2016 ROSIE NUNEZ, CASIE Kulkarni Ot K62.5 HEMORRHAGE OF ANUS AND RECTUM 10/25/2016 ROSIE NUNEZ, CASIE Kulkarni Ot Z01.818 ENCOUNTER FOR OTHER PREPROCEDURAL EXAMIN 10/25/2016 JERALD ANDUJAR MD Ot F17.210 NICOTINE DEPENDENCE, CIGARETTES, UNCOMPL 10/25/2016 JERALD ANDUJAR MD Ot I25.2 OLD MYOCARDIAL INFARCTION 10/25/2016 JERALD ANDUJAR MD Ot R07.89 OTHER CHEST PAIN 10/25/2016 JERALD ANDUJAR MD Ot R07.9 CHEST PAIN, UNSPECIFIED 10/25/2016 JERALD ANDUJAR MD Ot R42 DIZZINESS AND GIDDINESS 10/25/2016 JERALD ANDUJAR MD Ot 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 10/25/2016 JERALD ANDUJAR MD T Ot Z85.47 PERSONAL HISTORY OF MALIGNANT NEOPLASM O 10/25/2016 JERALD ANDUJAR MD Ot Z85.850 PERSONAL HISTORY OF MALIGNANT NEOPLASM O 10/25/2016 JERALD ANDUJAR MD Ot Z87.820 PERSONAL HISTORY OF TRAUMATIC BRAIN INJU 10/25/2016 JERALD ANDUJAR MD Ot Z90.79 ACQUIRED ABSENCE OF OTHER GENITAL ORGAN( 10/26/2016 JERALD ANDUJAR MD Ot F17.210 NICOTINE DEPENDENCE, CIGARETTES, UNCOMPL 10/26/2016 JERALD ANDUJAR MD Ot I25.2 OLD MYOCARDIAL INFARCTION 10/26/2016 JERALD ANDUJAR MD Ot R07.89 OTHER CHEST PAIN 10/26/2016 JERALD ANDUJAR MD Ot R07.9 CHEST PAIN, UNSPECIFIED 10/26/2016 JERLAD ANDUJAR MD Ot R42 DIZZINESS AND GIDDINESS 10/26/2016 JERALD ANDUJAR MD Ot 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 10/26/2016 JERALD ANDUJAR MD T Ot Z85.47 PERSONAL HISTORY OF MALIGNANT NEOPLASM O 10/26/2016 CON NUNEZ, JERALD Graves Ot Z85.850 PERSONAL HISTORY OF MALIGNANT NEOPLASM O 10/26/2016 CON NUNEZ, JERALD Graves Ot Z87.820 PERSONAL HISTORY OF TRAUMATIC BRAIN INJU 10/26/2016 CON NUNEZ, JERALD Graves Ot Z90.79 ACQUIRED ABSENCE OF OTHER GENITAL ORGAN( 03/05/2017 ROSIE NUNEZ, CASIE Kulkarni Ot K62.5 HEMORRHAGE OF ANUS AND RECTUM 03/05/2017 ROSIE NUNEZ, CASIE Kulkarni Ot Z01.818 ENCOUNTER FOR OTHER PREPROCEDURAL EXAMIN 03/05/2017 CONSUELO QUIROS Ot F17.210 NICOTINE DEPENDENCE, CIGARETTES, UNCOMPL 03/05/2017 CONSUELO QUIROS Ot G89.29 OTHER CHRONIC PAIN 03/05/2017 CONSUELO QUIROS Ot I25.10 ATHSCL HEART DISEASE OF [place] CORONARY 03/05/2017 CONSUELO QUIROS Ot M51.26 OTHER INTERVERTEBRAL DISC DISPLACEMENT, 03/05/2017 CONSUELO QUIROS Ot M54.5 LOW BACK PAIN 03/08/2017 CONSUELO QUIROS Ot F17.210 NICOTINE DEPENDENCE, CIGARETTES, UNCOMPL 03/08/2017 CONSUELO QUIROS Ot G89.29 OTHER CHRONIC PAIN 03/08/2017 CONSUELO QUIROS Ot I25.10 ATHSCL HEART DISEASE OF [place] CORONARY 03/08/2017 CONSUELO QUIROS Ot M51.26 OTHER INTERVERTEBRAL DISC DISPLACEMENT, 03/08/2017 CONSUELO QUIROS Ot M54.5 LOW BACK PAIN 01/10/2018 ZINA AYON APRN Ot F32.9 MAJOR DEPRESSIVE DISORDER, SINGLE EPISOD 01/10/2018 ZINA AYON APRN Ot F41.9 ANXIETY DISORDER, UNSPECIFIED 01/10/2018 ZINA AYON APRN Ot F43.10 POST-TRAUMATIC STRESS DISORDER, UNSPECIF 01/10/2018 ZINA AYON APRN Ot I25.10 ATHSCL HEART DISEASE OF [place] CORONARY 01/10/2018 IZNA AYON APRN Ot I25.2 OLD MYOCARDIAL INFARCTION 01/10/2018 ZINA AYON APRN Ot S62.633A DISP FX OF DISTAL PHALANX OF LEFT MIDDLE 01/10/2018 ZINA AYON APRN Ot S67.193A CRUSHING INJURY OF LEFT MIDDLE FINGER, I 01/10/2018 ZINA AYON APRN Ot W20.8XXA OTH CAUSE OF STRIKE BY THROWN, PROJECTED 01/10/2018 ZINA AYON APRN Ot Y92.[address] OF OCCURRENCE OF 01/10/2018 ZINA AYON APRN Ot Z77.22 CNTCT W AND EXPSR TO ENVIRON TOBACCO SMO 01/10/2018 ZINA AYON APRN Ot Z79.52 HALFWAY (CURRENT) USE OF SYSTEMIC STER 01/10/2018 ZINA AYON APRN Ot Z85.850 PERSONAL HISTORY OF MALIGNANT NEOPLASM O 01/10/2018 ZINA AYON APRN Ot Z87.820 PERSONAL HISTORY OF TRAUMATIC BRAIN INJU 01/10/2018 ZINA AYON APRN Ot Z88.0 ALLERGY STATUS TO PENICILLIN 01/10/2018 ZINA AYON APRN Ot Z88.6 ALLERGY STATUS TO ANALGESIC AGENT STATUS Procedures Code Description [place] [address] UA W/ CULTURE IF INDICATED 02/05/2013 63594 CULTURE URINE 02/05/2013 06359 GC/CHLAM URINE (STATE) 02/05/2013 Results Test Result Range CBC With Differential/Platelet - 09/27/16 08:28 WBC 9.1 x10E3/uL 3.4-10.8 RBC 4.43 x10E6/uL 4.14-5.80 Hemoglobin 14.3 g/dL 12.6-17.7 Hematocrit 41.4 % 37.5-51.0 MCV 94 fL 79-97 MCH 32.3 pg 26.6-33.0 MCHC 34.5 g/dL 31.5-35.7 RDW 13.4 % 12.3-15.4 Platelets 312 x10E3/uL 150-379 Neutrophils 61 % Lymphs 28 % Monocytes 7 % Eos 4 % Basos 0 % Neutrophils (Absolute) 5.5 x10E3/uL 1.4-7.0 Lymphs (Absolute) 2.6 x10E3/uL 0.7-3.1 Monocytes(Absolute) 0.6 x10E3/uL 0.1-0.9 Eos (Absolute) 0.3 x10E3/uL 0.0-0.4 Baso (Absolute) 0.0 x10E3/uL 0.0-0.2 Immature Granulocytes 0 % Immature Grans (Abs) 0.0 x10E3/uL 0.0-0.1 Comp. Metabolic Panel (14) - 09/27/16 08:28 Glucose, Serum 109 mg/dL 65-99 BUN 8 mg/dL 6-20 Creatinine, Serum 0.85 mg/dL 0.76-1.27 eGFR If NonAfricn Am 113 mL/min/1.73 >59 eGFR If Africn Am 131 mL/min/1.73 >59 BUN/Creatinine Ratio 9 8-19 Sodium, Serum 142 mmol/L 134-144 Potassium, Serum 4.2 mmol/L 3.5-5.2 Chloride, Serum 101 mmol/L 96-106 Carbon Dioxide, Total 26 mmol/L 18-29 Calcium, Serum 9.4 mg/dL 8.7-10.2 Protein, Total, Serum 6.9 g/dL 6.0-8.5 Albumin, Serum 4.8 g/dL 3.5-5.5 Globulin, Total 2.1 g/dL 1.5-4.5 A/G Ratio 2.3 1.1-2.5 Bilirubin, Total 0.4 mg/dL 0.0-1.2 Alkaline Phosphatase, S 88 IU/L 39-117 AST (SGOT) 14 IU/L 0-40 ALT (SGPT) 17 IU/L 0-44 Lipid Panel - 09/27/16 08:28 Cholesterol, Total 186 mg/dL 100-199 Triglycerides 398 mg/dL 0-149 HDL Cholesterol 23 mg/dL >39 VLDL Cholesterol Rajeev 80 mg/dL 5-40 LDL Cholesterol Calc 83 mg/dL 0-99 Testosterone,Free and Total - 09/27/16 08:28 Testosterone, Serum 391 ng/dL [phone] Comment: Comment Free Testosterone(Direct) 10.8 pg/mL 8.7-25.1 Hemoglobin A1c - 09/27/16 08:28 Hemoglobin A1c 5.6 % 4.8-5.6 Complete blood count (CBC) with automated white blood cell (WBC) differential - 10/25/16 16:25 Blood leukocytes automated count (number/volume) 9.8 10*3/uL 4.3-11.0 Blood erythrocytes automated count (number/volume) 4.35 10*6/uL 4.35-5.85 Venous blood hemoglobin measurement (mass/volume) 14.3 g/dL 13.3-17.7 Blood hematocrit (volume fraction) 40 % 40-54 Automated erythrocyte mean corpuscular volume 92 [foz_us] 80-99 Automated erythrocyte mean corpuscular hemoglobin (mass per erythrocyte) 33 pg 25-34 Automated erythrocyte mean corpuscular hemoglobin concentration measurement ( mass/volume) 36 g/dL 32-36 Automated erythrocyte distribution width ratio 12.8 % 10.0-14.5 Automated blood platelet count (count/volume) 290 10*3/uL 130-400 Automated blood platelet mean volume measurement 9.8 [foz_us] 7.4-10.4 Automated blood neutrophils/100 leukocytes 60 % 42-75 Automated blood lymphocytes/100 leukocytes 27 % 12-44 Blood monocytes/100 leukocytes 10 % 0-12 Automated blood eosinophils/100 leukocytes 3 % 0-10 Automated blood basophils/100 leukocytes 0 % 0-10 Blood neutrophils automated count (number/volume) 5.8 10*3 1.8-7.8 Blood lymphocytes automated count (number/volume) 2.7 10*3 1.0-4.0 Blood monocytes automated count (number/volume) 1.0 10*3 0.0-1.0 Automated eosinophil count 0.3 10*3/uL 0.0-0.3 Automated blood basophil count (count/volume) 0.0 10*3/uL 0.0-0.1 PT panel in platelet poor plasma by coagulation assay - 10/25/16 16:25 Prothrombin time (PT) in platelet poor plasma by coagulation assay 12.3 s 12.2-14.7 INR in platelet poor plasma or blood by coagulation assay 0.9 0.8-1.4 Activated partial thromboplastin time (aPTT) in platelet poor plasma bycoagulation assay - 10/25/16 16:25 Activated partial thromboplastin time (aPTT) in platelet poor plasma bycoagulation assay 30 s 24-35 Comprehensive metabolic panel - 10/25/16 16:25 Serum or plasma sodium measurement (moles/volume) 141 mmol/L 135-145 Serum or plasma potassium measurement (moles/volume) 3.8 mmol/L 3.6-5.0 Serum or plasma chloride measurement (moles/volume) 108 mmol/L 98-107 Carbon dioxide 23 mmol/L 21-32 Serum or plasma anion gap determination (moles/volume) 10 mmol/L 5-14 Serum or plasma urea nitrogen measurement (mass/volume) 15 mg/dL 7-18 Serum or plasma creatinine measurement (mass/volume) 0.88 mg/dL 0.60-1.30 Serum or plasma urea nitrogen/creatinine mass ratio 17 NRG Serum or plasma creatinine measurement with calculation of estimated glomerular filtration rate > NRG Serum or plasma glucose measurement (mass/volume) 101 mg/dL 70-105 Serum or plasma calcium measurement (mass/volume) 9.7 mg/dL 8.5-10.1 Serum or plasma total bilirubin measurement (mass/volume) 0.3 mg/dL 0.1-1.0 Serum or plasma alkaline phosphatase measurement (enzymatic activity/volume) 97 U/L 40-136 Serum or plasma aspartate aminotransferase measurement (enzymatic activity/ volume) 13 U/L 5-34 Serum or plasma alanine aminotransferase measurement (enzymatic activity/volume ) 17 U/L 0-55 Serum or plasma protein measurement (mass/volume) 7.2 g/dL 6.4-8.2 Serum or plasma albumin measurement (mass/volume) 4.7 g/dL 3.2-4.5 Magnesium - 10/25/16 16:25 Magnesium 2.2 mg/dL 1.8-2.4 Fibrin D-dimer FEU measurement in platelet poor plasma (mass/volume) - 16:25 Fibrin D-dimer FEU measurement in platelet poor plasma (mass/volume) < ug/mL 0.00-0.49 Serum or plasma C reactive protein measurement (mass/volume) - 10/25/16 16:25 Serum or plasma C reactive protein measurement (mass/volume) 0.88 mg /dL 0.00-0.50 Serum or plasma ethanol measurement (mass/volume) - 10/25/16 16:25 Serum or plasma ethanol measurement (mass/volume) < mg/dL <10 Serum or plasma troponin i.cardiac measurement (mass/volume) - 10/25/16 16:25 Serum or plasma troponin i.cardiac measurement (mass/volume) < ng/ mL <0.30 Myoglobin, serum - 10/25/16 16:25 Myoglobin, serum 36.8 ng/mL 10.0-92.0 THYROID STIMULATING HORMONE - 10/25/16 16:25 THYROID STIMULATING HORMONE 2.67 u[iU]/mL 0.35-4.94 Serum or plasma thyroxine (T4) free measurement (mass/volume) - 10/25/16 16:25 Serum or plasma thyroxine (T4) free measurement (mass/volume) 0.87 ng/dL 0.70-1.48 Influenza virus A and B antigen detection - 10/25/16 17:20 FLU RESULT NEGATIVE FOR INFLUENZA A AND B ANTIGENS BY [facility] Urine drug screening test - 10/25/16 17:30 Urine phencyclidine detection by screening method NEGATIVE NEGATIVE Urine benzodiazepines detection by screening method NEGATIVE NEGATIVE Urine cocaine detection NEGATIVE NEGATIVE Urine amphetamines detection by screening method NEGATIVE NEGATIVE Urine methamphetamine detection by screening method NEGATIVE NEGATIVE Urine cannabinoids detection by screening method NEGATIVE NEGATIVE Urine opiates detection by screening method NEGATIVE NEGATIVE Urine barbiturates detection NEGATIVE NEGATIVE Screening urine tricyclic antidepressants detection NEGATIVE NEGATIVE Urine methadone detection by screening method NEGATIVE NEGATIVE Urine oxycodone detection NEGATIVE NEGATIVE Urine propoxyphene detection NEGATIVE NEGATIVE TSH+Free T4 - 01/11/17 15:07 TSH 2.690 uIU/mL 0.450-4.500 T4,Free(Direct) 1.12 ng/dL 0.82-1.77 CBC With Differential/Platelet - 01/11/17 15:07 WBC 9.8 x10E3/uL 3.4-10.8 RBC 4.44 x10E6/uL 4.14-5.80 Hemoglobin 14.3 g/dL 12.6-17.7 Hematocrit 41.3 % 37.5-51.0 MCV 93 fL 79-97 MCH 32.2 pg 26.6-33.0 MCHC 34.6 g/dL 31.5-35.7 RDW 13.6 % 12.3-15.4 Platelets 286 x10E3/uL 150-379 Neutrophils 61 % Lymphs 27 % Monocytes 9 % Eos 3 % Basos 0 % Neutrophils (Absolute) 5.9 x10E3/uL 1.4-7.0 Lymphs (Absolute) 2.6 x10E3/uL 0.7-3.1 Monocytes(Absolute) 0.9 x10E3/uL 0.1-0.9 Eos (Absolute) 0.3 x10E3/uL 0.0-0.4 Baso (Absolute) 0.0 x10E3/uL 0.0-0.2 Immature Granulocytes 0 % Immature Grans (Abs) 0.0 x10E3/uL 0.0-0.1 Encounters ACCT No. Visit Date/Time Discharge Status Pt. Type Provider Facility Loc./Unit Complaint [id number] 03/24/2014 08:29:00 03/24/2014 23:59:59 CLS Outpatient GIANNA ANALYTICAL LABORAT[facility] TECHNICIANVICTORIA Noonan [id number] 02/06/2013 09:35:00 Document Registration [id number] 02/05/2013 15:50:00 Document Registration [id number] 03/14/2018 09:55:00 03/14/2018 23:59:59 [facility] [id number] 01/08/2018 20:51:00 01/08/2018 21:39:00 DIS Outpatient ZINA AYON APRN [facility] ER L HAND MIDDLE FINGER INJ [id number] 03/05/2017 10:40:00 03/05/2017 12:28:00 DIS Emergency CONSUELO QUIROS [facility] ER BACK PAIN [id number] 10/25/2016 15:45:00 10/25/2016 18:32:00 DIS Emergency CON NUNEZ, JERALD Graves [facility] ER CP,DIZZINESS [id number] 04/28/2016 06:30:00 04/28/2016 23:59:59 CLS Outpatient CASIE VELEZ MD [facility] PREOP RECTAL BLEEDING [id number] 04/18/2016 12:18:00 04/18/2016 15:07:00 DIS Emergency FRANCISCO WIGGINS DO [facility] ER RECTAL BLEEDING ABD PAIN/ CRAMPING NAUSEA [id number] 04/18/2016 12:18:00 Document Registration [id number] 09/29/2016 18:06:00 Document Registration [id number] 01/12/2017 11:11:00 Document Registration
[2018-09-04] MEDS ORDERED: CYCLOBENZAPRINE 10 MG (FLEXERIL) TAB PO STA (19:17)
[2018-09-04] MEDS ORDERED: HYDROcodone/APAP 7.5 MG/325 MG (LORTAB, LORCET PLUS) TABLET PO STA (19:17)
[2018-09-04 19:34] LABS: BILIRUBIN,URINE NEGATIVE (NEGATIVE); CLARITY,URINE CLEAR; COLOR,URINE YELLOW; GLUCOSE, URINE (UA) NEGATIVE (NEGATIVE); KETONES,URINE NEGATIVE (NEGATIVE); LEUKOCYTE ESTERASE ,URINE NEGATIVE (NEGATIVE); NITRITE,URINE NEGATIVE (NEGATIVE); PH,URINE 5 (5-9); PROTEIN,URINE 1+ (NEGATIVE); UROBILINOGEN,URINE NORMAL (NORMAL)
[2018-09-04 19:41] LABS: BACTERIA,URINE NEGATIVE /HPF; WBC,URINE 0-2 /HPF
[2018-09-04 19:47] LABS: AMPHETAMINE SCREEN, URINE NEGATIVE (NEGATIVE); BARBITURATE SCREEN URINE NEGATIVE (NEGATIVE); BENZODIAZEPINES SCREEN URINE NEGATIVE (NEGATIVE); CANNABINOID SCREEN, URINE NEGATIVE (NEGATIVE); COCAINE SCREEN URINE NEGATIVE (NEGATIVE); METHADONE STAT NEGATIVE (NEGATIVE); METHAMPHETAMINE SCREEN URINE S NEGATIVE (NEGATIVE); OPIATE SCREEN URINE NEGATIVE (NEGATIVE); OXYCODONE STAT NEGATIVE (NEGATIVE); PROPOXYPHENE STAT NEGATIVE (NEGATIVE); TRICYCLIC ANTIDEPRESSANTS SCRE NEGATIVE (NEGATIVE)
[2018-09-04] MEDS ORDERED: TRAM50TA2 PO (20:16)
[2018-09-04] MEDS ORDERED: PRD20T PO (20:16)
[2018-09-04] MEDS ORDERED: CYCL10TA9 PO (20:16)
--- NOTE | 2018-09-04 20:17 | ED Back Pain ---
General Chief Complaint: Back Problems Stated Complaint: BACK PAIN Nursing Triage Note: Pt has had back spasms for the past 3-4 hours when he was walking across the parking lot. Pt has had back spasms for the past year on and off, 1-2 times a month. Normally takes motrin when these occur but this time is worse than normal. Nursing Sepsis Screen: No Definite Risk History of Present Illness Date Seen by Provider: Sep 04, 2018 Time Seen by Provider: 19:05 Initial Comments 38-year-old male presents for acute low back pain. He states that he chronically has issues with back pain and spasms. [facility] is normally seen at the [facility]. Approximately 2-3 times a month his back will "go out." Today he was walking across the parking lot when he had an acute spasm. He denies any bowel or bladder changes. He has taken no medication prior to arrival at the [facility]. Location: Lumbar Spine, Paraspinous Muscles Severity: Severe Pain/Injury Location: Back Radiation: Buttocks, Upper Legs Method of Injury: Unknown Associated Symptoms: muscle spasms, weakness (secondary to pain); No numbness in legs/feet, No tingling in legs/feet, No sensory/motor loss; lower back pain; No loss of bladder control, No loss of bowel control Allergies and Home Medications Allergies Coded Allergies: Penicillins (Verified Allergy, Unknown, 03/05/17) aspirin (Unverified Allergy, Unknown, 03/05/17) Home Medications Cyclobenzaprine HCl 10 Mg Tablet, 10 MG PO Q8H PRN for SPASMS Prescribed by: CONSUELO GARZA on 03/05/17 1224 Cyclobenzaprine HCl 10 Mg Tablet, 10 MG PO Q8H Prescribed by: RINA BARNES on 09/04/182015 Prednisone 20 Mg Tab, 40 MG PO DAILY Prescribed by: CONSUELO GARZA on 03/05/17 1224 Prednisone 20 Mg Tab, 20 MG PO DAILY Take 3 tablets once daily 3 days, then 2 tablets once daily 3 days, then 1 tablet once daily for 3 days. Prescribed by: RINA BARNES on 09/04/182015 Tramadol HCl 50 Mg Tablet, 50 MG PO Q4H PRN for PAIN-MILD TO MODERATE Prescribed by: CONSUELO GARZA on 03/05/17 1224 Tramadol HCl 50 Mg Tablet, 50 MG PO Q8H PRN for PAIN-SEVERE Prescribed by: RINA BARNES on 09/04/182015 Patient Home Medication List Home Medication List Reviewed: Yes Review of Systems Constitutional: no symptoms reported, see HPI Musculoskeletal: see HPI, back pain, muscle cramps All Other Systems Reviewed Negative Unless Noted: Yes Past Vzhtuvr-Nutzjf-Fxdziy Hx Past Med/Social Hx: Reviewed Nursing Past Med/Soc Hx Patient Social History Alcohol Use: Denies Use Recreational Drug Use: No Smoking Status: Current Everyday Smoker Type Used: Cigarettes 2nd Hand Smoke Exposure: Yes Recent Foreign Travel: No Contact w/Someone Who Travel: No Recent Infectious Disease Expo: No Recent Hopitalizations: No Physical Abuse: No Sexual Abuse: No Mistreated: No Fear: No Immunizations Up To Date Tetanus Booster (TDap): Unknown Seasonal Allergies Seasonal Allergies: No Past Medical History Surgeries: Yes (SHOULDER, HEAD, HIP, R KNEE, L LEG) Orthopedic, Testicular Respiratory: No Cardiac: Yes Coronary Artery Disease, Heart Attack Neurological: Yes Traumatic Brain Injury Reproductive Disorders: No Gastrointestinal: No Musculoskeletal: Yes (SCIATICA) Back Injury, Scoliosis, Chronic Back Pain Endocrine: No Cancer: Yes Thyroid Psychosocial: Yes (memory deficits from TBI) Anxiety, PTSD, Depression Integumentary: No Blood Disorders: No Family Medical History No Pertinent Family Hx Physical Exam Vital Signs Vital Signs - First Documented 09/04/18 18:56 Temp 98.4 Pulse 95 Resp 24 B/P (MAP) 154/97 (116) Pulse Ox 99 Capillary Refill : Less Than 3 Seconds Height, Weight, BMI Height: 5'11.00" Weight: 195lbs. oz. 88.393287cu; BMI Method:Stated General Appearance: No Apparent Distress, WD/WN, Other (patient ambulates with a severely antalgic gait, using a walker.) Cardiovascular: Regular Rate, Rhythm, No Edema, No Murmur, Normal Peripheral Pulses Respiratory: Chest Non Tender, Lungs Clear, Normal Breath Sounds Gastrointestinal: Non Tender, Soft Back: Normal Inspection, No CVA Tenderness, No Vertebral Tenderness, Decreased Range of Motion (secondary to pain), Muscle Spasm, Other (Power 4+/5 L2-S1. ) Extremity: Normal Capillary Refill, Normal Inspection, Normal Range of Motion, Non Tender Neurologic/Psychiatric: Alert, Oriented x3, No Motor/Sensory Deficits Skin: Normal Color, Warm/Dry Progress/Results/Core Measures Results/Orders Lab Results Laboratory Tests Test 09/04/18 19:25 Range/Units Urine Color YELLOW Urine Clarity CLEAR Urine pH 5 5-9 Urine Specific [place] 1.020 1.016-1.022 Urine Protein 1+ H NEGATIVE Urine Glucose (UA) NEGATIVE NEGATIVE Urine Ketones NEGATIVE NEGATIVE Urine Nitrite NEGATIVE NEGATIVE Urine Bilirubin NEGATIVE NEGATIVE Urine Urobilinogen NORMAL NORMAL MG/DL Urine Leukocyte Esterase NEGATIVE NEGATIVE Urine RBC (Auto) NEGATIVE NEGATIVE Urine RBC NONE /HPF Urine WBC 0-2 /HPF Urine Crystals NONE /LPF Urine Bacteria NEGATIVE /HPF Urine Casts NONE /LPF Urine Mucus LARGE H /LPF Urine Culture Indicated NO Urine Opiates Screen NEGATIVE NEGATIVE Urine Oxycodone Screen NEGATIVE NEGATIVE Urine Methadone Screen NEGATIVE NEGATIVE Urine Propoxyphene Screen NEGATIVE NEGATIVE Urine Barbiturates Screen NEGATIVE NEGATIVE Ur Tricyclic Antidepressants Screen NEGATIVE NEGATIVE Urine Phencyclidine Screen NEGATIVE NEGATIVE Urine Amphetamines Screen NEGATIVE NEGATIVE Urine Methamphetamines Screen NEGATIVE NEGATIVE Urine Benzodiazepines Screen NEGATIVE NEGATIVE Urine Cocaine Screen NEGATIVE NEGATIVE Urine Cannabinoids Screen NEGATIVE NEGATIVE My Orders Orders - CAMERON,RINA LEVER MILLER Cyclobenzaprine Tablet (Flexeril Tablet) (09/04/18 19:17) Hydrocodone/Apap 7.5/325 Tab (Lortab 7. (09/04/18 19:17) Drug Screen Stat (Urine) (09/04/18 19:19) Ua Culture If Indicated (09/04/18 19:19) Vital Signs/I&O 09/04/18 09/04/18 18:56 20:25 Temp 98.4 Pulse 95 90 Resp 24 20 B/P (MAP) 154/97 (116) 123/82 (96) Pulse Ox 99 99 Blood Pressure Mean: 116 Progress Progress Note : Time: 19:05 Progress Note Patient seen and evaluated, recommended hydrocodone/APAP 7.5/325 and cyclobenzaprine 10 mg orally for pain. 1999 patient rates pain at a 4/10 at the present time. His neurological exam is intact bilateral lower extremities. He is continuing to have some muscle spasm but does report they've been improved. 2019 discharge instructions and return precautions reviewed with the patient. He was able to ambulate with an improved gait. Departure Impression Primary Impression: Lumbosacral strain Qualified Codes: S39.012A - Strain of muscle, fascia and tendon of lower back , initial encounter Additional Impression: Lumbar paraspinal muscle spasm Disposition: 01 HOME, SELF-CARE Condition: Stable Departure-Patient Inst. Decision time for Depature: 20:15 Referrals: [facility] (PCP/Family) Primary Care Physician Patient Instructions: Lumbar Muscle Strain (DC), Low Back Pain (DC) Add. Discharge Instructions: Alternate heat and ice to low back. Take medication as directed. You may take ibuprofen 600 mg every 8 hours. Consider seeing a customer experience specialist at [address] or [place]. Return to emergency department for new, urgent health care needs. All discharge instructions reviewed with patient and/or family. Voiced understanding. Scripts Tramadol HCl (Tramadol HCl) 50 Mg Tablet 50 MG PO Q8H PRN for PAIN-SEVERE, #20 TAB Prov: RINA BARNES 09/04/18 Prednisone (Prednisone) 20 Mg Tab 20 MG PO DAILY, #18 TAB 0 Refills Take 3 tablets once daily 3 days, then 2 tablets once daily 3 days, then 1 tablet once daily for 3 days. Prov: RINA BARNES 09/04/18 Cyclobenzaprine HCl (Cyclobenzaprine HCl) 10 Mg Tablet 10 MG PO Q8H, #12 TAB 0 Refills Prov: RINA BARNES 09/04/18 RINA BARNES Sep 04, 2018 20:17
[2018-09-04 20:25] VITALS: BP 123/82
== END 2018-09-04 20:34 | disposition home or self-care (01) ==
LOC: EDUNIT# 18:56 → ER 18:57
DX: S39.012A Strain of muscle, fascia and tendon of lower back, initial encounter (principal); I25.10 Atherosclerotic heart disease of native coronary artery without angina pectoris; I25.2 Old myocardial infarction; F41.9 Anxiety disorder, unspecified; F43.10 Post-traumatic stress disorder, unspecified; F32.9 Major depressive disorder, single episode, unspecified; F17.210 Nicotine dependence, cigarettes, uncomplicated; Z85.850 Personal history of malignant neoplasm of thyroid; Z98.890 Other specified postprocedural states; Z87.820 Personal history of traumatic brain injury; Z88.0 Allergy status to penicillin; Z88.6 Allergy status to analgesic agent; Z79.52 Long term (current) use of systemic steroids; X58.XXXA Exposure to other specified factors, initial encounter
CPT/HCPCS: 80306; 81000; 99283

== ENCOUNTER 2019-02-02 04:52 | Emergency (ER) | payer MEDICAID ==
[~2019-02-02] VITALS: Ht 180.3 cm; Wt 83.9 kg
[~2019-02-02 04:52] MED LIST changes: -GEMF600T4 PO; +GEMF600T8 PO
--- OUTSIDE RECORDS SUMMARY | 2019-02-02 04:57 | XMS REPORT ---
Author Author STEVAN FOLEY [facility] Address [address] [place] [address] Care Team Providers Care Clay Mixer Name Role Phone STEVAN FOLEY Unavailable PROBLEMS Type Condition ICD9-CM Code LHK46-ML Code Onset Dates Condition Status SNOMED Code Problem Back pain of lumbar region with sciatica M54.40 Active 142616941 Problem Internal hemorrhoid, bleeding K64.8 Active 45772034 Problem Bipolar 1 disorder F31.9 Active 763613406 Problem Anxiety disorder, unspecified F41.9 Active 789053513 Problem PTSD (post-traumatic stress disorder) F43.10 Active 72788122 Problem Social phobia F40.10 Active 62674596 ALLERGIES Substance Reaction Event Type Date Status Klonopin Hallucinations Drug Allergy Sep, Active Dilantin Toxic levels at low dosing Drug Allergy Sep, Active Aspirin Tightness in chest Drug Allergy Sep, Active Penicillins Dyspnea Non Drug Allergy Sep, Active ENCOUNTERS Encounter Location Date Diagnosis [facility] [address] [address] Sep, [facility] [address] [address] Sep, Chronic back pain M54.9 [facility] [address] [address] Mar, Lymph node enlargement R59.9 and Abscess of left earlobe H60.02 [facility] [address] [address] Nov, Back pain of lumbar region with sciatica M54.40 [facility] [address] [address] Apr, Tinea corporis B35.4 and Cellulitis of left lower extremity L03.116 [place] [id number] [place] [address] Jan, 2017 Internal hemorrhoid, bleeding K64.8 ; History of thyroid cancer Z85.850 and Generalized abdominal pain R10.84 [place] [id number] [place] [address] Oct, PTSD (post-traumatic stress disorder) F43.10 [place] [id number] [place] [address] Oct, [place] [id number] [place] [address] Sep, Encounter to establish care Z76.89 [place] [id number] [place] [address] Sep, [place] [address] [address] Sep, PTSD (post-traumatic stress disorder) F43.10 ; Encounter to establish care Z76.89 ; Frequent urination R35.0 and 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 [place] [id number] [place] [address] Sep, PTSD (post-traumatic stress disorder) F43.10 ; 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 [address] [facility] [id number] [id number] Nov, [facility] [address] [address] Nov, [facility] [id number] [address] Mar, [facility] [address] [id number] [id number] Mar, [facility] [address] [address] February, [facility] [address] [address] February, [facility] [address] [address] February, [facility] [id number] [address] February, [facility] [address] [address] Jan, [facility] [id number] [address] Jan, IMMUNIZATIONS No Known Immunizations SOCIAL HISTORY Never Assessed REASON FOR VISIT back pain-chronic back pain for the last couple of years. He has has several bulging discs in his back. The ER sent him here so he could get a referral to Dr. Mcrae or Dr. Giordano at [facility].--YNES Meier PLAN OF CARE Activity Details Follow Up See Roland Wheatley as scheduled. Reason: VITAL SIGNS Height 72 in 2018-09-10 Weight 185.6 lbs 2018-09-10 Temperature 97.9 degrees Fahrenheit 2018-09-10 Heart Rate 88 bpm 2018-09-10 Respiratory Rate 20 2018-09-10 BMI 25.17 kg/m2 2018-09-10 Blood pressure systolic 130 mmHg 2018-09-10 Blood pressure diastolic 74 mmHg 2018-09-10 MEDICATIONS Medication Instructions Dosage Frequency Start Date End Date Duration Status PrednisoLONE 5 MG (21) as directed Active Tramadol HCl 50 MG Orally every 8 hrs 1 tablet as needed 8h Active Cyclobenzaprine HCl 10 MG Orally Three times a day 1 tablet as needed 8h Active RESULTS No Results PROCEDURES No Known [...] plate in head 2002 Surgical History right shoulder-pens and screws 2002 Surgical History both knee 2003 Surgical History left ankle 2002 Surgical History oral surgery/jaw 2002 Hospitalization History Coma x 6 months 2002
--- OUTSIDE RECORDS SUMMARY | 2019-02-02 04:58 | XMS REPORT | Continuity of Care Document ---
Author Organization Unknown Address Unknown Allergies Active Description Code Type Severity Reaction Onset Reported/Identified Relationship to Patient Clinical Status Yes aspirin Drug Allergy N/A N/A 03/24/2014 Yes Dilantin Drug Allergy N/A N/A 03/24/2014 Yes Klonopin Drug Allergy N/A N/A 03/24/2014 Yes Penicillins Drug Allergy N/A N/A 03/24/2014 Medications There is no data. Problems Date [...] KATZ APRN 381.81 DYSFUNCTION OF EUSTACHIAN TUBE Procedures Code [place] [address] UA W/ CULTURE IF INDICATED 02/05/2013 72295 CULTURE URINE 02/05/2013 95268 GC/CHLAM URINE (STATE) 02/05/2013 Results There is no data. Encounters ACCT No. Visit Date/Time Discharge Status Pt. Type Provider Facility Loc./Unit Complaint [id number] 03/24/2014 08:29:00 03/24/2014 23:59:59 CLS Outpatient VICTORIA KATZ APRN [id number] 02/06/2013 09:35:00 Document Registration [id number] 02/05/2013 15:50:00 Document Registration
[2019-02-02] MEDS ORDERED: METH4TAB PO (05:24)
[2019-02-02] MEDS ORDERED: CYCL10TA9 PO (05:24)
--- NOTE | 2019-02-02 05:24 | ED Back Pain ---
General Stated Complaint: BACK PAIN,SPASMS Source of Information: Patient History of Present Illness Date Seen by Provider: Feb 02, 2019 Time Seen by Provider: 05:10 Initial Comments PT ARRIVES VIA POV--DROVE HIMSELF TO ER PT THEN CALLED ER FROM THE FAR END OF THE PARKING LOT AND DEMANDED THAT STAFF COME OUT TO PARKING LOT AND BRING HIM INTO ER AFTER 2 SURVEYS OF PARKING LOT, PT EVENTUALLY LOCATED STANDING NONCHALANTLY AGAINST THE SIDE OF HIS TRUCK BED THEN PT SUDDENLY BECAME VERY DRAMATIC AND HOLDING HIS BODY VERY STIFFLY AND STATES HIS BACK IS "LOCKED UP" AND HE CAN'T SIT DOWN ( YET DROVE HIMSELF HERE AND GOT OUT OF HIS VEHICLE ON HIS OWN AND WALKED TO THE END OF HIS TRUCK BED ) PT EVENTUALLY WAS ABLE TO SIT HIMSELF IN THE WHEELCHAIR AND TURN HIMSELF AROUND AND THEN STAFF WAS ABLE TO WHEEL HIM INTO ER ONCE BACK IN ROOM, PT ABLE TO STAND AND TRANSFER HIMSELF TO ER COT PT HAS CHRONIC BACK PAIN FOR MANY YEARS AND THIS IS NO DIFFERENT THAN HIS CHRONIC PAIN PT STATES "I GO THROUGH THIS ALL THE TIME" "EVERY MONTH OR TWO IT GETS TO THIS POINT" PT STATES "I GET A SHOT AND STEROIDS" PT STATES HE HAS "BULGING DISCS" AND "ARTHRITIS IN HIS BACK" CLAIMS HE HAS NEVER SEEN A SPECIALIST OR PAIN MANAGEMENT FOR THIS PROBLEM NO INJURY PT STATES HE WAS MOWING [place] YESTERDAY AFTERNOON AROUND 1600, AND HIS BACK STARTED HURTING, BUT DID NOT TAKE ANYTHING FOR PAIN STATES HE WENT TO BED AND GOT UP 1 1/2 - 2 HOURS AGO TO GO TO THE BATHROOM AND HIS BACK "LOCKED UP" BUT THEN "LOOSENED UP" AFTER AN HOUR, AND THEN HE DROVE HIMSELF HERE. STATES "IT'S LOCKED UP AGAIN" PT STATES PAIN RADIATES DOWN TO LEFT KNEE WHICH IS NORMAL WHEN IT GETS THIS BAD NO PARESTHESIAS OR MOTOR DEFICITS NO PROBLEMS WITH BOWEL OR BLADDER FUNCTION TOOK IBUPROFEN 2 HOURS AGO AND APPLIED VOLTAREN GEL TO AREA Other Comments PCP: HARLEY-ALETHEA, SHELTON SHPIMAN Allergies and Home Medications Allergies Coded Allergies: Penicillins (Verified Allergy, Unknown, 03/05/17) aspirin (Unverified Allergy, Unknown, 03/05/17) Home Medications Cyclobenzaprine HCl 10 Mg Tablet, 10 MG PO Q8H PRN for SPASMS Prescribed by: CONSUELO GARZA on 03/05/17 1224 Cyclobenzaprine HCl 10 Mg Tablet, 10 MG PO Q8H Prescribed by: RINA BARNES on 09/04/182015 Cyclobenzaprine HCl 10 Mg Tablet, 10 MG PO Q8H Prescribed by: FRANCISCO WIGGINS on 02/02/19523 Methylprednisolone 4 Mg Tab.ds.pk, 4 MG PO UD Prescribed by: FRANCISCO WIGGINS on 02/02/19523 Prednisone 20 Mg Tab, 40 MG PO DAILY Prescribed by: CONSUELO GARZA on 03/05/17 122 Prednisone 20 Mg Tab, 20 MG PO DAILY Take 3 tablets once daily 3 days, then 2 tablets once daily 3 days, then 1 tablet once daily for 3 days. Prescribed by: RINA BARNES on 09/04/182015 Tramadol HCl 50 Mg Tablet, 50 MG PO Q4H PRN for PAIN-MILD TO MODERATE Prescribed by: CONSUELO GARZA on 03/05/17 122 Tramadol HCl 50 Mg Tablet, 50 MG PO Q8H PRN for PAIN-SEVERE Prescribed by: RINA BARNES on 09/04/182015 Patient Home Medication List Home Medication List Reviewed: Yes Review of Systems Constitutional: no symptoms reported Respiratory: no symptoms reported Cardiovascular: no symptoms reported Gastrointestinal: no symptoms reported Musculoskeletal: see HPI Skin: no symptoms reported Psychiatric/Neurological: No Symptoms Reported Past Rjylrct-Rxbcpl-[place]as Hx Patient Social History Alcohol Use: Past History (HISTORY OF ABUSE, CLAIMS NO USE FOR YEARS, PER PT ON 02/02/19) Recreational Drug Use: Yes (THC IN PAST) Drug of Choice: THC IN PAST Smoking Status: Current Everyday Smoker (1 1/2 PPD) Type Used: Cigarettes (1 1/2 PPD) Recent Foreign Travel: No Contact w/Someone Who Travel: No Recent Hopitalizations: No Immunizations Up To Date Tetanus Booster (TDap): Unknown Seasonal Allergies Seasonal Allergies: No Past Medical History Surgeries: Yes (SHOULDER, HEAD, HIP, R KNEE, L LEG, SKIN GRAFTS ON FACE--PER OLD RECORDS; ON 02/02/19 PT NOW STATES THE ONLY SURGERY HE HAS EVER HAD IS RIGHT SHOULDER SURGERY AND ADAMANTLY DENIES ANY OTHER SURGERIES) Orthopedic, Testicular (PER OLD RECORDS, BUT PT DENIES ON 02/02/19) Respiratory: No Cardiac: Yes (PT CLAIMS "HEART ATTACK" ON OLD CHARTS, BUT NO PHYSICIAN VERIFICATION OF THIS AND HAS NOT HAD A CARDIAC CATH HERE; HTN--PT SELF DC'D MEDICATIONS YEARS AGO, PER PT ON 02/02/19) Coronary Artery Disease, Heart Attack, Hypertension Neurological: Yes (PT CLAIMS HX OF SEIZURES ON 02/02/19, BUT STATES HE QUIT TAKING SEIZURE MEDICATIONS > 3 YEARS AGO (DILANTIN) AND LAST SEIZURE WAS 8 MONTHS AGO. THERE IS NO DOCUMENTATION OF THIS ON PRIOR RECORDS) Seizure Disorder, Traumatic Brain Injury Reproductive Disorders: No Genitourinary: No (PT DENIES ON 02/02/19, BUT PT HAS REPORTED "TESTICULAR CANCER" ON OLD RECORDS) Gastrointestinal: Yes Hemorrhoids Musculoskeletal: Yes (SCIATICA) Degenerate Disk Disease, Arthritis, Back Injury, Scoliosis, Chronic Back Pain Endocrine: No (PT CLAIMS NO HISTORY ON 02/02/19, BUT HAS CLAIMED "THYROID CANCER" ON OLD RECORDS, BUT NO ACTUAL PHYSICIAN VERIFICATION OF THIS) HEENT: Yes (GLASSES) Cancer: Yes (PT HAS CLAIMED BOTH TESTICULAR AND THYROID CANCER ON OLD CHARTS, BUT THERE IS NO PHYSICIAN VERIFICATION OF THIS; PT DENIES ANY HISTORY OF CANCER ON 02/02/19) Testicular, Thyroid Psychosocial: Yes ("memory deficits from TBI" PER PT ) Anxiety, PTSD, Depression Integumentary: No Blood Disorders: No Family Medical History No Pertinent Family Hx Physical Exam Vital Signs Capillary Refill : Height, Weight, BMI Height: 5'11.00" Weight: 195lbs. oz. 88.819975sa; BMI Method:Stated General Appearance: Other (EXTREMELY DRAMATIC, HOLDS ENTIRE BODY VERY STIFFLY, MOVES VERY SLOWLY AND DRAMATICALLY, AND ARRIVES WITH A CANE--THIS BEHAVIOR STOPS WHEN DISTRACTED. PT IS DIRTY AND MALODOROUS AND REEKS OF CIGARETTES. 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 Referrals: [facility] (PCP/Family) Primary Care Physician Patient Instructions: Low Back Pain (DC), Muscle Spasms (DC) Add. Discharge Instructions: MOIST HEAT TO AREA AT 20 MINUTE INTERVALS FOLLOW UP WITH [facility] IN 1-2 DAYS IF NO BETTER Scripts Cyclobenzaprine HCl (Cyclobenzaprine HCl) 10 Mg Tablet 10 MG PO Q8H, #15 TAB Prov: FRANCISCO WIGGINS DO 02/02/19 Methylprednisolone (Medrol) 4 Mg Tab.ds.pk 4 MG PO UD, #1 PKG Prov: FRANCISCO WIGGINS DO 02/02/19 FRANCISCO WIGGINS DO Feb 02, 2019 05:24
[2019-02-02] MEDS ORDERED: KETOROLAC 60 MG/2 ML VIAL ONE (05:30)
[2019-02-02] MEDS ORDERED: KETOROLAC 60 MG/2 ML VIAL IM ONE (05:30)
[2019-02-02 05:57] VITALS: BP 128/73
== END 2019-02-02 05:59 | disposition home or self-care (01) ==
LOC: EDUNIT# 04:52 → ER 04:54
DX: M54.5 Low back pain (principal); G89.29 Other chronic pain; M62.830 Muscle spasm of back; I25.2 Old myocardial infarction; I25.10 Atherosclerotic heart disease of native coronary artery without angina pectoris; I10 Essential (primary) hypertension; G40.909 Epilepsy, unspecified, not intractable, without status epilepticus; M41.9 Scoliosis, unspecified; F41.9 Anxiety disorder, unspecified; F32.9 Major depressive disorder, single episode, unspecified; F43.10 Post-traumatic stress disorder, unspecified; F17.210 Nicotine dependence, cigarettes, uncomplicated; Z87.19 Personal history of other diseases of the digestive system; Z85.47 Personal history of malignant neoplasm of testis; Z85.850 Personal history of malignant neoplasm of thyroid; Z87.820 Personal history of traumatic brain injury; Z98.890 Other specified postprocedural states; Z94.5 Skin transplant status; Z88.0 Allergy status to penicillin; Z88.6 Allergy status to analgesic agent; Z79.52 Long term (current) use of systemic steroids
CPT/HCPCS: 99284

== ENCOUNTER 2019-10-25 15:30 | Emergency (ER) | payer MEDICAID, OTHER ==
[~2019-10-25] VITALS: Ht 180 cm; Wt 86.0 kg
[~2019-10-25 15:30] MED LIST changes: +METH4TAB PO; -TRAM50TA2 PO
[2019-10-25] MEDS ORDERED: KETOROLAC 60 MG/2 ML VIAL IM STA (15:45)
[2019-10-25] MEDS ORDERED: ORPHENADRINE 60 MG/2 ML (NORFLEX) AMP IM STA (15:45)
--- NOTE | 2019-10-25 15:48 | ED Back Pain ---
General Stated Complaint: BACK PAIN History of Present Illness Date Seen by Provider: Oct 25, 2019 Time Seen by Provider: 15:47 Initial Comments 39-year-old male presents with back pain. Patient has had chronic back pain for at least 2 years possibly longer. Reports he sneezed does not have any "back spasm" patient has frequent visits to this. He denies any fevers chills nausea vomiting other systemic complaints. He denies any bowel or bladder issues he does have some mild scattered issues down the left leg that is also chronic . No other complaint Allergies and Home Medications Allergies Coded Allergies: Penicillins (Verified Allergy, Unknown, 03/05/17) aspirin (Unverified Allergy, Unknown, 03/05/17) Home Medications Cyclobenzaprine HCl 10 Mg Tablet, 10 MG PO Q8H PRN for SPASMS Prescribed by: CONSUELO GARZA on 03/05/171223 Cyclobenzaprine HCl 10 Mg Tablet, 10 MG PO Q8H Prescribed by: RINA BARNES on 09/04/182015 Cyclobenzaprine HCl 10 Mg Tablet, 10 MG PO Q8H Prescribed by: FRANCISCO WIGGINS on 02/02/19523 Methylprednisolone 4 Mg Tab.ds.pk, 4 MG PO UD Prescribed by: FRANCISCO WIGGINS on 02/02/19523 Prednisone 20 Mg Tab, 40 MG PO DAILY Prescribed by: CONSUELO GARZA on 03/05/171223 Prednisone 20 Mg Tab, 20 MG PO DAILY Take 3 tablets once daily 3 days, then 2 tablets once daily 3 days, then 1 tablet once daily for 3 days. Prescribed by: RINA BARNES on 09/04/182015 Tramadol HCl 50 Mg Tablet, 50 MG PO Q4H PRN for PAIN-MILD TO MODERATE Prescribed by: CONSUELO GARZA on 03/05/171223 Tramadol HCl 50 Mg Tablet, 50 MG PO Q8H PRN for PAIN-SEVERE Prescribed by: RINA BARNES on 09/04/182015 Patient Home Medication List Home Medication List Reviewed: Yes Review of Systems Constitutional: No chills, No fever Respiratory: No cough, No short of breath Cardiovascular: No chest pain Gastrointestinal: No abdominal pain, No nausea, No vomiting Musculoskeletal: see HPI, back pain Skin: no symptoms reported Psychiatric/Neurological: No Symptoms Reported Past Rvggbrf-Uuzpdw-Rxogfe Hx Past Med/Social Hx: Reviewed Nursing Past Med/Soc Hx Patient Social History Drug of Choice: THC IN PAST Type Used: Cigarettes Recent Foreign Travel: No Contact w/Someone Who Travel: No Recent Hopitalizations: No Immunizations Up To Date Tetanus Booster (TDap): Unknown Seasonal Allergies Seasonal Allergies: No Past Medical History Surgeries: Yes Orthopedic, Testicular Respiratory: No Cardiac: Yes Coronary Artery Disease, Heart Attack, Hypertension Neurological: Yes Seizure Disorder, Traumatic Brain Injury Reproductive Disorders: No Genitourinary: No Gastrointestinal: Yes Hemorrhoids Musculoskeletal: Yes (SCIATICA) Degenerate Disk Disease, Arthritis, Back Injury, Scoliosis, Chronic Back Pain Endocrine: No HEENT: Yes (GLASSES) Cancer: Yes Testicular, Thyroid Psychosocial: Yes ("memory deficits from TBI" PER PT ) Anxiety, PTSD, Depression Integumentary: No Blood Disorders: No Family Medical History No Pertinent Family Hx Physical Exam Vital Signs Vital Signs - First Documented 10/25/19 15:56 Temp 36.7 Pulse 93 Resp 18 B/P (MAP) 144/78 (100) Pulse Ox 98 Capillary Refill : Height, Weight, BMI Height: 5'11.00" Weight: 185lbs. oz. 83.271110yo; BMI Method:Stated General Appearance: Mild Distress Cardiovascular: Regular Rate, Rhythm, No Edema Respiratory: Lungs Clear, Normal Breath Sounds Gastrointestinal: Non Tender Back: Muscle Spasm; No Vertebral Tenderness Extremity: No Normal Inspection, No Non Tender Neurologic/Psychiatric: Alert, Oriented x3, No Motor/Sensory Deficits Progress/Results/Core Measures Results/Orders My Orders Orders - SRIKANTH LOPEZ DO Ketorolac Injection (Toradol Injection) (10/25/19 15:45) Orphenadrine Injection (Norflex Injectio (10/25/19 15:45) Vital Signs/I&O 10/25/19 15:56 Temp 36.7 Pulse 93 Resp 18 B/P (MAP) 144/78 (100) Pulse Ox 98 Departure Impression Primary Impression: Chronic back pain Qualified Codes: M54.42 - Lumbago with sciatica, left side; G89.29 - Other chronic pain Additional Impression: Sciatic leg pain Disposition: HOME, SELF-CARE Condition: Stable Departure-Patient Inst. Referrals: [facility] (PCP/Family) Primary Care Physician Patient Instructions: Lumbar Muscle Strain (DC), Chronic Pain (DC), Sciatica (DC), Sciatica Exercises Add. Discharge Instructions: Emergency department focuses on treating and ruling out life-threatening disease s. Whenever possible, a diagnosis is given. However, most patients are given an impression based on their history, physical exam, and workup during your brief time in the ER. Information about probable diagnosis and other educational material has been provided. Please take the time to read and understand this information. It is very important that you follow up with a physician as discussed during the visit today. Failure to adhere to your follow-up instructions may lead to severe disability, injury, or so please make sure to keep your appointments or obtain one as requested. Please keep in mind the emergency department is not designed to your primary care or "family doctor" and nonurgent issues are best evaluated by an outpatient physician SRIKANTH LOPEZ DO Oct 25, 2019 15:48
[2019-10-25 16:33] VITALS: BP 140/77
== END 2019-10-25 16:34 | disposition home or self-care (01) ==
LOC: EDUNIT# 15:30 → ER 15:31
DX: G89.29 Other chronic pain (principal); M54.32 Sciatica, left side; I10 Essential (primary) hypertension; I25.10 Atherosclerotic heart disease of native coronary artery without angina pectoris; I25.2 Old myocardial infarction; G40.909 Epilepsy, unspecified, not intractable, without status epilepticus; F41.9 Anxiety disorder, unspecified; F43.10 Post-traumatic stress disorder, unspecified; F32.9 Major depressive disorder, single episode, unspecified; Z85.47 Personal history of malignant neoplasm of testis; Z85.850 Personal history of malignant neoplasm of thyroid; Z87.820 Personal history of traumatic brain injury; Z88.0 Allergy status to penicillin; Z88.6 Allergy status to analgesic agent; Z79.52 Long term (current) use of systemic steroids
CPT/HCPCS: 96372; 99284

== ENCOUNTER → 2020-01-27 | Outpatient (CLI) | payer MEDICAID, OTHER ==
--- NOTE | 2020-01-27 11:09 | Diagnostic Imaging Report ---
INDICATION: Low back pain with left leg pain. EXAMINATION: MRI lumbar spine without contrast on 01/27/2020. FINDINGS: The alignment of the spine is maintained. No subluxation is appreciated. The vertebral body heights are preserved. The tip of the conus is unremarkable in appearance and location. T12-L1: Unremarkable. L1-L2: There is minimal bilateral facet hypertrophy with no central stenosis or bulging disc material. The neural foramina appear unremarkable. L2-L3: There is bilateral facet hypertrophy with minimal fluid in the facet joints bilaterally. No significant bulging disc material is seen. There is no central stenosis. There is mild bilateral neuroforaminal narrowing. L3-L4: There is disc desiccation. There is a broad-based bulging disc with an annular tear diffusely throughout the posterior aspect of the disc. Bilateral facet hypertrophy is mild. There is flattening of the ventral thecal sac but no significant central stenosis. There is bilateral neuroforaminal narrowing which appears mild to moderate, slightly worse on the left. L4-L5: There is disc desiccation with intervertebral disc space narrowing and a central disc protrusion containing an annular tear. There is bilateral facet and ligamentum flavum hypertrophy with mild central stenosis and narrowing of the lateral recesses bilaterally. Encroachment upon the transiting nerve roots is not excluded, correlate with symptoms. There is bilateral neuroforaminal narrowing which appears moderate. L5-S1: There is bilateral facet hypertrophy with fluid in the facet joints. There is intervertebral disc space narrowing and disc desiccation. There is a slight left paracentral bulging disc with disc desiccation and a central annular tear. No central stenosis but mild narrowing of the left lateral recess is noted. No obvious nerve root encroachment is appreciated. There is bilateral mild to moderate neuroforaminal narrowing. The visualized intra-abdominal structures appear unremarkable. IMPRESSION: Multilevel diffuse degenerative findings as above without significant central or neuroforaminal stenosis. See above discussion for each level description. Dictated by: Dictated on workstation # [id number]
== END ==
LOC: RAD 08:11
PROVIDERS: ATTEND Nurse Practitioner Community Health
DX: M47.817 Spondylosis without myelopathy or radiculopathy, lumbosacral region (principal); M54.42 Lumbago with sciatica, left side
CPT/HCPCS: 72148